=== PATIENT | female | born 1940 | race Caucasian/White ===

== ENCOUNTER 2018-11-17 02:30 | Inpatient (IN) | payer OTHER ==
[2018-11-17] MEDS ORDERED: NACL 0.9% 3 ML SYG IV (04:30)
[2018-11-17] MEDS ORDERED: BISACODYL (EC) 5 MG TAB PO (04:30)
[2018-11-17] MEDS: NITROGLYCERIN (SL) 0.4 MG TAB SL (07:03)
[2018-11-17 07:04] LABS: ADD MAN DIFF? NO
[2018-11-17 07:06] LABS: WHITE BLOOD COUNT 4.3 10^3/ul (4.8-10.8)
[2018-11-17 07:06] LABS: BASOPHILS % 0.5 % (0.0-2.0); EOSINOPHILS # 0.1 10^3/ul (0.0-0.5); EOSINOPHILS % 1.9 % (0.0-7.0); HEMATOCRIT 36.6 % (37.0-47.0); HEMOGLOBIN 11.9 g/dl (12.0-16.0); LYMPHOCYTES # 1.3 10^3/ul (0.8-2.9); LYMPHOCYTES % 30.7 % (15.0-51.0); MEAN CORPUSCULAR HEMOGLOBIN 28.9 pg (29.0-33.0); MEAN CORPUSCULAR HGB CONC 32.5 g/dl (32.0-37.0); MEAN CORPUSCULAR VOLUME 88.8 fl (82.0-101.0); MEAN PLATELET VOLUME 10.4 fl (7.4-10.4); MONOCYTE # 0.4 10^3/ul (0.3-0.9); MONOCYTES % 8.2 % (0.0-11.0); NEUTROPHIL # 2.5 10^3/ul (1.6-7.5); NEUTROPHILS % 58.5 % (39.0-77.0); PLATELET COUNT 154 10^3/UL (140-415); RED BLOOD COUNT 4.12 10^6/ul (4.20-5.40); RED CELL DISTRIBUTION WIDTH 13.1 % (11.5-14.5)
[2018-11-17 07:22] LABS: CREATINE KINASE 47 IU/L (23-200)
[2018-11-17 07:22] LABS: HEMOGLOBIN A1C 6.5 % (0-5.9)
[2018-11-17 07:26] LABS: ALANINE AMINOTRANSFERASE 27 IU/L (13-69); ALBUMIN 3.5 g/dl (3.3-4.9); ALKALINE PHOSPHATASE 46 IU/L (42-121); ANION GAP 8 (5-13); ASPARTATE AMINO TRANSFERASE 22 IU/L (15-46); BILIRUBIN,INDIRECT 0.4 mg/dl (0-1.1); BILIRUBIN,TOTAL 0.4 mg/dl (0.2-1.3); BLOOD UREA NITROGEN 10 mg/dl (7-20); CALCIUM 9.1 mg/dl (8.4-10.2); CARBON DIOXIDE 31 mmol/L (21-31); CHLORIDE 103 mmol/L (97-110); CHOL/HDL RATIO 13.4 RATIO; CHOLESTEROL 268 mg/dl (100-200); CREATININE 0.54 mg/dl (0.44-1.00); GLUCOSE 176 mg/dl (70-220); HDL CHOLESTEROL 20 mg/dl (33-92); LDL CHOLESTEROL,CALCULATED 194 mg/dl; MAGNESIUM 1.8 mg/dl (1.7-2.5); POTASSIUM 3.9 mmol/L (3.5-5.1); SODIUM 142 mmol/L (135-144); TOTAL PROTEIN 6.4 g/dl (6.1-8.1); TRIGLYCERIDES 272 mg/dl (0-149)
[2018-11-17 07:35] LABS: CK INDEX 1.6; CK-MB 0.75 ng/ml (0.0-2.4); TROPONIN-I < 0.012 ng/ml (0.000-0.120)
[2018-11-17] MEDS: BENAZEPRIL 20 MG TAB PO (09:10)
[2018-11-17] MEDS: AMLODIPINE 10 MG TAB PO (09:10)
[2018-11-17] MEDS: HEPARIN 5,000 UNIT/1 ML VIAL SC ×3 (09:26→22:25)
[2018-11-17 12:43] LABS: CREATINE KINASE 51 IU/L (23-200)
[2018-11-17 12:57] LABS: CK-MB 0.53 ng/ml (0.0-2.4); TROPONIN-I < 0.012 ng/ml (0.000-0.120)
[2018-11-17 13:04] LABS: D-DIMER 900.98 ng/ml (<460)
[2018-11-17] MEDS: HYDROCHLOROTHIAZIDE 12.5 MG CAP PO (14:16)
[2018-11-17] MEDS: ATORVASTATIN 10 MG TAB PO (22:00)
[2018-11-18] MEDS: HEPARIN 5,000 UNIT/1 ML VIAL SC ×3 (06:18→22:31)
[2018-11-18 08:10] LABS: ADD MAN DIFF? NO
[2018-11-18 08:23] LABS: WHITE BLOOD COUNT 4.5 10^3/ul (4.8-10.8)
[2018-11-18 08:23] LABS: BASOPHILS % 0.9 % (0.0-2.0); EOSINOPHILS # 0.1 10^3/ul (0.0-0.5); EOSINOPHILS % 1.6 % (0.0-7.0); HEMATOCRIT 40.5 % (37.0-47.0); HEMOGLOBIN 13.2 g/dl (12.0-16.0); LYMPHOCYTES % 43.7 % (15.0-51.0); MEAN CORPUSCULAR HEMOGLOBIN 28.7 pg (29.0-33.0); MEAN CORPUSCULAR HGB CONC 32.6 g/dl (32.0-37.0); MEAN PLATELET VOLUME 10.5 fl (7.4-10.4); MONOCYTE # 0.5 10^3/ul (0.3-0.9); MONOCYTES % 11.1 % (0.0-11.0); NEUTROPHIL # 1.9 10^3/ul (1.6-7.5); NEUTROPHILS % 42.5 % (39.0-77.0); PLATELET COUNT 176 10^3/UL (140-415); RED CELL DISTRIBUTION WIDTH 13.2 % (11.5-14.5)
[2018-11-18 08:34] LABS: MAGNESIUM 1.9 mg/dl (1.7-2.5)
[2018-11-18 08:36] LABS: ALANINE AMINOTRANSFERASE 25 IU/L (13-69); ALBUMIN 3.8 g/dl (3.3-4.9); ALBUMIN/GLOBULIN RATIO 1.26; ALKALINE PHOSPHATASE 46 IU/L (42-121); ANION GAP 9 (5-13); ASPARTATE AMINO TRANSFERASE 32 IU/L (15-46); BILIRUBIN,INDIRECT 0.6 mg/dl (0-1.1); BILIRUBIN,TOTAL 0.6 mg/dl (0.2-1.3); BLOOD UREA NITROGEN 10 mg/dl (7-20); CALCIUM 9.4 mg/dl (8.4-10.2); CARBON DIOXIDE 31 mmol/L (21-31); CHLORIDE 102 mmol/L (97-110); CREATININE 0.47 mg/dl (0.44-1.00); GLUCOSE 155 mg/dl (70-220); POTASSIUM 4.3 mmol/L (3.5-5.1); SODIUM 142 mmol/L (135-144); TOTAL PROTEIN 6.8 g/dl (6.1-8.1)
[2018-11-18 08:39] LABS: TROPONIN-I < 0.012 ng/ml (0.000-0.120)
[2018-11-18] MEDS: HYDROCHLOROTHIAZIDE 12.5 MG CAP PO (08:49)
[2018-11-18] MEDS: BENAZEPRIL 20 MG TAB PO (08:50)
[2018-11-18] MEDS: AMLODIPINE 10 MG TAB PO (08:50)
[2018-11-18] MEDS ORDERED: ATORVASTATIN 10 MG TAB PO (21:00)
[2018-11-18] MEDS: ATORVASTATIN 80 MG TAB PO (23:32)
[2018-11-19] MEDS: HEPARIN 5,000 UNIT/1 ML VIAL SC ×3 (06:24→21:24)
[2018-11-19] MEDS: HYDROCHLOROTHIAZIDE 12.5 MG CAP PO (09:08)
[2018-11-19] MEDS: AMLODIPINE 10 MG TAB PO (09:08)
[2018-11-19] MEDS: LINAGLIPTIN 5 MG TABLET PO (09:09)
[2018-11-19] MEDS: BENAZEPRIL 20 MG TAB PO (09:24)
[2018-11-19 09:27] LABS: ADD MAN DIFF? NO
[2018-11-19 09:32] LABS: BASOPHIL # 0.1 10^3/ul (0.0-0.1); EOSINOPHILS # 0.1 10^3/ul (0.0-0.5); EOSINOPHILS % 1.6 % (0.0-7.0); HEMATOCRIT 40.7 % (37.0-47.0); HEMOGLOBIN 13.5 g/dl (12.0-16.0); LYMPHOCYTES # 2.3 10^3/ul (0.8-2.9); LYMPHOCYTES % 45.5 % (15.0-51.0); MEAN CORPUSCULAR HEMOGLOBIN 28.8 pg (29.0-33.0); MEAN CORPUSCULAR HGB CONC 33.2 g/dl (32.0-37.0); MEAN PLATELET VOLUME 10.3 fl (7.4-10.4); MONOCYTE # 0.4 10^3/ul (0.3-0.9); MONOCYTES % 8.2 % (0.0-11.0); NEUTROPHIL # 2.2 10^3/ul (1.6-7.5); NEUTROPHILS % 43.7 % (39.0-77.0); PLATELET COUNT 191 10^3/UL (140-415); RED BLOOD COUNT 4.68 10^6/ul (4.20-5.40); RED CELL DISTRIBUTION WIDTH 13.2 % (11.5-14.5)
[2018-11-19 09:49] LABS: PHOSPHORUS 4.4 mg/dl (2.5-4.9)
[2018-11-19 09:49] LABS: MAGNESIUM 1.9 mg/dl (1.7-2.5)
[2018-11-19 09:50] LABS: ALANINE AMINOTRANSFERASE 23 IU/L (13-69); ALBUMIN 4.1 g/dl (3.3-4.9); ALBUMIN/GLOBULIN RATIO 1.24; ALKALINE PHOSPHATASE 49 IU/L (42-121); ANION GAP 9 (5-13); ASPARTATE AMINO TRANSFERASE 34 IU/L (15-46); BILIRUBIN,INDIRECT 0.6 mg/dl (0-1.1); BILIRUBIN,TOTAL 0.6 mg/dl (0.2-1.3); BLOOD UREA NITROGEN 15 mg/dl (7-20); CALCIUM 9.8 mg/dl (8.4-10.2); CARBON DIOXIDE 32 mmol/L (21-31); CHLORIDE 102 mmol/L (97-110); CREATININE 0.47 mg/dl (0.44-1.00); GLUCOSE 162 mg/dl (70-220); SODIUM 143 mmol/L (135-144); TOTAL PROTEIN 7.4 g/dl (6.1-8.1)
[2018-11-19] MEDS ORDERED: SOD CHLORIDE 0.9% 1,000 ML IV (11:43)
[2018-11-19] MEDS: DIPHENHYDRAMINE 50 MG CAP PO (12:00)
[2018-11-19] MEDS: DIAZEPAM 5 MG TAB PO (12:00)
[2018-11-19] MEDS ORDERED: MIDAZOLAM 1 MG/ML 2 ML INJ (16:53)
[2018-11-19] MEDS ORDERED: LIDOCAINE 1% (MDV) 20 ML INJ (16:53)
[2018-11-19] MEDS ORDERED: FENTAnyl 50 MCG/ML VIAL (16:53)
[2018-11-19] MEDS ORDERED: IODIXANOL LOCM 100 ML BTL ×2 (16:53→17:34)
[2018-11-19] MEDS ORDERED: HEPARIN 1000 UNITS/ML 10 ML INJ (16:53)
[2018-11-19] MEDS ORDERED: VERAPAMIL 5 MG INJ (16:54)
[2018-11-19] MEDS ORDERED: NITROGLYCERIN (IC) 100 MCG/ML INJ (16:54)
[2018-11-19] MEDS: SOD CHLORIDE 0.9% 1,000 ML IV (21:00)
[2018-11-19] MEDS ORDERED: ATORVASTATIN 80 MG TAB PO (21:00)
[2018-11-19] MEDS: ATORVASTATIN 80 MG TAB PO (21:04)
[2018-11-20 05:12] LABS: ADD MAN DIFF? NO
[2018-11-20 05:23] LABS: BASOPHILS % 0.3 % (0.0-2.0); EOSINOPHILS # 0.1 10^3/ul (0.0-0.5); HEMATOCRIT 34.9 % (37.0-47.0); HEMOGLOBIN 11.5 g/dl (12.0-16.0); LYMPHOCYTES # 1.8 10^3/ul (0.8-2.9); LYMPHOCYTES % 30.9 % (15.0-51.0); MEAN CORPUSCULAR HEMOGLOBIN 28.8 pg (29.0-33.0); MEAN CORPUSCULAR VOLUME 87.5 fl (82.0-101.0); MEAN PLATELET VOLUME 10.2 fl (7.4-10.4); MONOCYTE # 0.5 10^3/ul (0.3-0.9); MONOCYTES % 7.9 % (0.0-11.0); NEUTROPHIL # 3.5 10^3/ul (1.6-7.5); NEUTROPHILS % 59.7 % (39.0-77.0); PLATELET COUNT 160 10^3/UL (140-415); RED BLOOD COUNT 3.99 10^6/ul (4.20-5.40); RED CELL DISTRIBUTION WIDTH 13.1 % (11.5-14.5)
[2018-11-20 05:23] LABS: WHITE BLOOD COUNT 5.8 10^3/ul (4.8-10.8)
[2018-11-20 05:55] LABS: ALANINE AMINOTRANSFERASE 39 IU/L (13-69); ALBUMIN 3.5 g/dl (3.3-4.9); ALBUMIN/GLOBULIN RATIO 1.16; ALKALINE PHOSPHATASE 50 IU/L (42-121); ANION GAP 12 (5-13); ASPARTATE AMINO TRANSFERASE 33 IU/L (15-46); BILIRUBIN,INDIRECT 0.6 mg/dl (0-1.1); BILIRUBIN,TOTAL 0.6 mg/dl (0.2-1.3); BLOOD UREA NITROGEN 18 mg/dl (7-20); CARBON DIOXIDE 27 mmol/L (21-31); CHLORIDE 103 mmol/L (97-110); CREATININE 0.57 mg/dl (0.44-1.00); GLUCOSE 141 mg/dl (70-220); POTASSIUM 3.5 mmol/L (3.5-5.1); SODIUM 142 mmol/L (135-144); TOTAL PROTEIN 6.5 g/dl (6.1-8.1)
[2018-11-20] MEDS: HEPARIN 5,000 UNIT/1 ML VIAL SC ×3 (05:58→22:08)
[2018-11-20] MEDS: SOD CHLORIDE 0.9% 1,000 ML IV (07:25)
[2018-11-20] MEDS: LINAGLIPTIN 5 MG TABLET PO (08:48)
[2018-11-20] MEDS: AMLODIPINE 10 MG TAB PO ×2 (08:53→09:00)
[2018-11-20] MEDS: HYDROCHLOROTHIAZIDE 12.5 MG CAP PO (09:00)
[2018-11-20] MEDS: BENAZEPRIL 20 MG TAB PO (09:00)
[2018-11-20] MEDS: SOD CHLORIDE 0.9% 250 ML IV* (10:30)
[2018-11-20 16:16] LABS: ADD UMIC YES; UR ASCORBIC ACID NEGATIVE (NEGATIVE); UR BILIRUBIN (Dip) NEGATIVE (NEGATIVE); UR BLOOD (Dip) NEGATIVE (NEGATIVE); UR CLARITY SLIGHTLY CLOUDY (CLEAR); UR COLOR YELLOW (YELLOW); UR GLUCOSE (Dip) NEGATIVE (NEGATIVE); UR HYALINE CAST FEW /HPF (NONE SEEN); UR KETONES (Dip) NEGATIVE (NEGATIVE); UR LEUKOCYTE ESTERASE (Dip) 3+ Leu/ul (NEGATIVE); UR MUCUS FEW /HPF (NONE SEEN); UR NITRITE (Dip) NEGATIVE (NEGATIVE); UR NONSQUAMOUS EPITHELIAL CELL 3 /HPF (NONE SEEN); UR RBC 3 /HPF (0-5); UR SPECIFIC GRAVITY (Dip) 1.027 (1.003-1.030); UR SQUAMOUS EPITHELIAL CELL FEW /HPF (FEW); UR TOTAL PROTEIN (Dip) NEGATIVE (NEGATIVE); UR UROBILINOGEN (Dip) 2+ mg/dL (NEGATIVE); UR WBC 106 /HPF (0-5)
[2018-11-20] MEDS: ATORVASTATIN 80 MG TAB PO (20:53)
[2018-11-21] MEDS: CEFAZOLIN 2 GM/50 ML (PMX) 50 ML IVPB (05:52)
[2018-11-21] MEDS ORDERED: ALBUMIN HUMAN 25% 100 ML INJ (07:00)
[2018-11-21] MEDS ORDERED: ALBUMIN HUMAN 5% 250 ML INJ (07:00)
[2018-11-21] MEDS: BENAZEPRIL 20 MG TAB PO (08:53)
[2018-11-21] MEDS: LINAGLIPTIN 5 MG TABLET PO (08:56)
[2018-11-21] MEDS: ASPIRIN 600 MG SUPP PR ×2 (10:24→19:00)
[2018-11-21] MEDS ORDERED: ETOMIDATE 20 MG INJ (11:07)
[2018-11-21] MEDS ORDERED: LIDOCAINE 2% (SDV) 5 ML INJ (11:07)
[2018-11-21] MEDS ORDERED: MIDAZOLAM 5 ML ×2 (11:07)
[2018-11-21] MEDS ORDERED: SUCCINYLCHOLINE CHLORIDE 100 MG/5 ML SYG IV (11:08)
[2018-11-21] MEDS ORDERED: ROCURONIUM 50 MG INJ (11:08)
[2018-11-21] MEDS ORDERED: HEPARIN 1000 UNITS/ML 10 ML INJ ×3 (11:23→13:42)
[2018-11-21] MEDS ORDERED: PROTAMINE 250 MG INJ ×2 (11:23→17:49)
[2018-11-21] MEDS ORDERED: LORAZEPAM 2 MG INJ IV (12:00)
[2018-11-21] MEDS ORDERED: IPRATROPIUM (NEB) 0.5 MG/2.5 ML AMP HHN (12:00)
[2018-11-21] MEDS ORDERED: ONDANSETRON 4 MG INJ IV ×2 (12:00→19:30)
[2018-11-21] MEDS ORDERED: LEVALBUTEROL (NEB) 1.25 MG/0.5 ML AMP HHN (12:00)
[2018-11-21] MEDS ORDERED: DIPHENHYDRAMINE 50 MG INJ IV (12:00)
[2018-11-21] MEDS ORDERED: MIDAZOLAM 1 MG/ML 2 ML INJ IV (12:00)
[2018-11-21] MEDS ORDERED: FENTAnyl 50 MCG/ML VIAL IV ×2 (12:00)
[2018-11-21] MEDS ORDERED: TRANEXAMIC ACID 1,000 MG/10 ML VIAL (12:00)
[2018-11-21] MEDS ORDERED: LABETALOL HCL 20MG INJ IV (12:00)
[2018-11-21] MEDS ORDERED: HYDROmorphONE 0.5 MG/0.5 ML SYG IV ×3 (12:00)
[2018-11-21] MEDS ORDERED: hydrALAzine 20 MG INJ IV (12:00)
[2018-11-21] MEDS ORDERED: NA BICARBONATE 8.4% 50 ML SYG ×2 (13:42→15:55)
[2018-11-21] MEDS ORDERED: LIDOCAINE 100 MG SYRINGE ×2 (13:42→15:55)
[2018-11-21] MEDS: PAPAVERINE 60 MG INJ (13:43)
[2018-11-21] MEDS: HEPARIN 1000 UNITS/ML 10 ML INJ (13:44)
[2018-11-21] MEDS: VANCOMYCIN 1 GM INJ (13:45)
[2018-11-21] MEDS ORDERED: ALBUMIN HUMAN 5% 250 ML (14:07)
[2018-11-21] MEDS ORDERED: POTASSIUM CHLORIDE 100 ML IVPB (14:07)
[2018-11-21 15:24] LABS: IMMEDIATE SPIN CROSSMATCH 1
[2018-11-21] MEDS ORDERED: CA CHLORIDE 10% 10 ML SYRINGE (16:26)
[2018-11-21] MEDS: INSULIN HUMAN REGULAR 100 UNIT in SOD CHLORIDE 0.9% 99 ML IVPB ×2 (17:00→20:36)
[2018-11-21 17:25] LABS: TYPE AND SCREEN 1
[2018-11-21 18:02] LABS: IMMEDIATE SPIN CROSSMATCH 1 8
[2018-11-21] MEDS ORDERED: DEXTROSE 50% 50 ML SYRINGE IV ×4 (19:00→20:00)
[2018-11-21] MEDS ORDERED: ACCU-CHEK XX (19:00)
[2018-11-21] MEDS: morphine 2 MG INJ IV ×2 (19:18→23:31)
[2018-11-21] MEDS ORDERED: FUROSEMIDE 40 MG INJ (19:21)
[2018-11-21] MEDS ORDERED: ACETAMINOPHEN 650 MG SUPP PR (19:30)
[2018-11-21] MEDS: FUROSEMIDE 40 MG INJ IV (19:30)
[2018-11-21] MEDS ORDERED: METOCLOPRAMIDE 10 MG INJ IV (19:30)
[2018-11-21 19:35] LABS: ADD MAN DIFF? NO
[2018-11-21 19:37] LABS: ABNORMAL IP MESSAGE 1; EOSINOPHILS % 0.3 % (0.0-7.0); HEMATOCRIT 28.5 % (37.0-47.0); HEMOGLOBIN 9.6 g/dl (12.0-16.0); LYMPHOCYTES # 0.8 10^3/ul (0.8-2.9); LYMPHOCYTES % 22.4 % (15.0-51.0); MEAN CORPUSCULAR HEMOGLOBIN 29.1 pg (29.0-33.0); MEAN CORPUSCULAR HGB CONC 33.7 g/dl (32.0-37.0); MEAN CORPUSCULAR VOLUME 86.4 fl (82.0-101.0); MEAN PLATELET VOLUME 10.1 fl (7.4-10.4); MONOCYTES % 1.1 % (0.0-11.0); NEUTROPHIL # 2.7 10^3/ul (1.6-7.5); NEUTROPHILS % 75.9 % (39.0-77.0); PLATELET COUNT 75 10^3/UL (140-415); RED CELL DISTRIBUTION WIDTH 13.3 % (11.5-14.5)
[2018-11-21 19:37] LABS: WHITE BLOOD COUNT 3.6 10^3/ul (4.8-10.8)
[2018-11-21 19:38] LABS: POSITIVE DIFF @See below
[2018-11-21 19:39] LABS: AADO2 Arterial 380.6 mmHg (7.0-24.0); Arterial Base Excess -1.4 mmol/L (-3.0-3); Arterial Blood Gas Oxygen Sat 93.1 mmHG (95.0-100.0); Arterial COHb 0.3 % (0.0-3.0); Arterial Fraction of Oxyhgb 92.5 % (93.0-99.0); Arterial HCO3 24.2 mmol/L (22.0-26.0); Arterial MetHb 0.3 % (0.0-1.5); Arterial pCO2 44.4 mmhg (35-45); MODE VENT - AC; Site A-Line
[2018-11-21 19:53] LABS: ANION GAP 11 (5-13); BLOOD UREA NITROGEN 11 mg/dl (7-20); CALCIUM 10.2 mg/dl (8.4-10.2); CARBON DIOXIDE 26 mmol/L (21-31); CHLORIDE 109 mmol/L (97-110); CREATININE 0.64 mg/dl (0.44-1.00); GLUCOSE 167 mg/dl (70-220); MAGNESIUM 2.6 mg/dl (1.7-2.5); POTASSIUM 3.8 mmol/L (3.5-5.1); SODIUM 146 mmol/L (135-144)
[2018-11-21 19:58] LABS: INR 1.31; PROTIME 16.4 Sec (11.9-14.9); PT RATIO 1.3
[2018-11-21 19:59] LABS: PARTIAL THROMBOPLASTIN TIME 33.5 Sec (23.0-35.0)
[2018-11-21 20:00] LABS: MODE VENT - AC; MetHgb Venous 0.3 %; Sample Type BLMV; Site VENOUS LINE; Venous COHb 0.3 %; Venous Fraction OxyHgb 66.9 %; Venous Oxygen Sat 67.3 mmHG (55.0-75.0); Venous Total Hemglobin 10.8 g/dl
[2018-11-21] MEDS ORDERED: MAGNESIUM SULFATE 2 GM/50 ML 50 ML IVPB (20:00)
[2018-11-21] MEDS ORDERED: MAGNESIUM SULFATE 1 GM/D5W 100 ML IVPB (20:00)
[2018-11-21 20:16] LABS: HEMOGLOBIN A1C 6.1 % (0-5.9)
[2018-11-21] MEDS ORDERED: POTASSIUM CHLORIDE 50 ML (20:22)
[2018-11-21] MEDS: PROPOFOL 100 ML IV ×2 (20:37→23:58)
[2018-11-21] MEDS: DOPamine-D5W 1.6 MG/ML 250 ML IV (20:45)
[2018-11-21] MEDS: POTASSIUM CHLORIDE 50 ML IVPB ×2 (20:49→23:18)
[2018-11-21 20:57] LABS: ANISOCYTOSIS 1+ (0-0); BAND NEUTROPHILS #M 0.3 10^3/ul (0.0-0.6); BAND NEUTROPHILS % (M) 9 % (0-4); GIANT THROMBO% (M) 2 % (0-0); LYMPHOCYTES % (M) 30 % (15-51); MICROCYTOSIS 1+ (0-0); MONOCYTES % (M) 2 % (0-11); PLATELET MORPHOLOGY COMMENT @See below; REACTIVE LYMPHOCYTES #M 0.1 10^3/ul (0.0-0.0); REACTIVE LYMPHOCYTES% (M) 4 % (0-0); SEGMENTED NEUTROPHILS (M) % 55 % (39-77); SMUDGE%M 69 % (0-0)
[2018-11-21] MEDS: ALBUMIN HUMAN 5% 250 ML IV ×3 (21:00→22:46)
[2018-11-21] MEDS: ACCU-CHEK XX ×3 (21:00→23:42)
[2018-11-21] MEDS ORDERED: NS + KCL 20 MEQ 1,000 ML IV (21:30)
[2018-11-21] MEDS ORDERED: niCARdipine 25 MG in SOD CHLORIDE 0.9% 240 ML IV (21:30)
[2018-11-21] MEDS: INSULIN HUMAN REGULAR 100 UNIT in SOD CHLORIDE 0.9% 99 ML IV (21:59)
[2018-11-21] MEDS: POTASSIUM CHLORIDE 40 MEQ, CALCIUM CHLORIDE 10% 1 GM in DEXTROSE 5%-0.225% NACL 1,000 ML IV (22:12)
[2018-11-21 22:31] LABS: POTASSIUM 3.5 mmol/L (3.5-5.1)
[2018-11-21 23:13] LABS: AADO2 Arterial 567.2 mmHg (7.0-24.0); Arterial Base Excess -5.1 mmol/L (-3.0-3); Arterial Blood Gas Oxygen Sat 97.3 mmHG (95.0-100.0); Arterial COHb 0.3 % (0.0-3.0); Arterial Fraction of Oxyhgb 96.6 % (93.0-99.0); Arterial HCO3 19.2 mmol/L (22.0-26.0); Arterial MetHb 0.4 % (0.0-1.5); Arterial pCO2 32.5 mmhg (35-45); MODE VENT - AC; Site A-Line
[2018-11-21] MEDS: MILRINONE LACTATE 100 ML IV (23:55)
[2018-11-22] MEDS: POTASSIUM CHLORIDE 50 ML IVPB ×2 (00:26→03:16)
[2018-11-22] MEDS: ACCU-CHEK XX ×24 (00:58→23:00)
[2018-11-22 02:25] LABS: ADD MAN DIFF? NO
[2018-11-22 02:27] LABS: WHITE BLOOD COUNT 6.7 10^3/ul (4.8-10.8)
[2018-11-22 02:27] LABS: ABNORMAL IP MESSAGE 1; BASOPHILS % 0.3 % (0.0-2.0); EOSINOPHILS % 0.1 % (0.0-7.0); HEMATOCRIT 27.2 % (37.0-47.0); HEMOGLOBIN 9.1 g/dl (12.0-16.0); LYMPHOCYTES # 0.3 10^3/ul (0.8-2.9); LYMPHOCYTES % 3.9 % (15.0-51.0); MEAN CORPUSCULAR HGB CONC 33.5 g/dl (32.0-37.0); MEAN CORPUSCULAR VOLUME 86.6 fl (82.0-101.0); MEAN PLATELET VOLUME 10.5 fl (7.4-10.4); MONOCYTE # 0.4 10^3/ul (0.3-0.9); MONOCYTES % 5.7 % (0.0-11.0); NEUTROPHILS % 89.4 % (39.0-77.0); PLATELET COUNT 84 10^3/UL (140-415); RED BLOOD COUNT 3.14 10^6/ul (4.20-5.40); RED CELL DISTRIBUTION WIDTH 14.2 % (11.5-14.5)
[2018-11-22 02:30] LABS: POSITIVE DIFF @See below
[2018-11-22 02:47] LABS: PROTIME 15.3 Sec (11.9-14.9); PT RATIO 1.2
[2018-11-22 02:55] LABS: ANION GAP 7 (5-13); BLOOD UREA NITROGEN 14 mg/dl (7-20); CALCIUM 9.5 mg/dl (8.4-10.2); CARBON DIOXIDE 26 mmol/L (21-31); CHLORIDE 116 mmol/L (97-110); CREATININE 0.62 mg/dl (0.44-1.00); GLUCOSE 146 mg/dl (70-220); MAGNESIUM 2.4 mg/dl (1.7-2.5); POTASSIUM 3.8 mmol/L (3.5-5.1); SODIUM 149 mmol/L (135-144)
[2018-11-22 03:28] LABS: POTASSIUM 3.8 mmol/L (3.5-5.1)
[2018-11-22 03:51] LABS: ANISOCYTOSIS 2+ (0-0); BAND NEUTROPHILS #M 1.4 10^3/ul (0.0-0.6); BAND NEUTROPHILS % (M) 22 % (0-4); BASOPHILS % (M) 1 % (0-2); EOSINOPHILS % (M) 1 % (0-7); GIANT THROMBO% (M) 3 % (0-0); LYMPHOCYTES #M 0.3 10^3/ul (0.8-2.9); LYMPHOCYTES % (M) 5 % (15-51); MICROCYTOSIS 2+ (0-0); MONOCYTE #M 0.4 10^3/ul (0.3-0.9); MONOCYTES % (M) 6 % (0-11); PLATELET ESTIMATE DECREASED; POLYCHROMASIA 2+ (0-0); SEG NEUT #M 4.4 10^3/ul (1.6-7.5); SEGMENTED NEUTROPHILS (M) % 65 % (39-77); SMUDGE%M 5 % (0-0)
[2018-11-22 04:58] LABS: AADO2 Mixed Venous 345.7 mmHg; Blood Gas PS 14; MODE VENT - SIMV; MetHgb Mixed Venous 0.5 %; Mixed Venous Base Excess -2.3 mmol/L; Mixed Venous COHb 0.3 %; Mixed Venous Fraction OxyHgb 65.3 %; Mixed Venous Oxygen Sat 65.8 mmHG (65.0-75.0); Mixed Venous Total Hemglobin 9.9 g/dl; Site VENOUS LINE
[2018-11-22 05:05] LABS: AADO2 Arterial 279.7 mmHg (7.0-24.0); Arterial Base Excess -0.8 mmol/L (-3.0-3); Arterial Blood Gas Oxygen Sat 96.8 mmHG (95.0-100.0); Arterial COHb 0.2 % (0.0-3.0); Arterial Fraction of Oxyhgb 96.3 % (93.0-99.0); Arterial HCO3 24.5 mmol/L (22.0-26.0); Arterial MetHb 0.3 % (0.0-1.5); Arterial pCO2 43.1 mmhg (35-45); Blood Gas PS 14; MODE VENT - SIMV; Site A-Line
[2018-11-22] MEDS ORDERED: ALBUMIN HUMAN 5% 250 ML (05:22)
[2018-11-22] MEDS: ALBUMIN HUMAN 5% 250 ML IV ×3 (05:24→17:42)
[2018-11-22] MEDS: CEFAZOLIN 1 GM/50 ML (PMX) 50 ML IVPB ×3 (06:42→21:26)
[2018-11-22 06:50] LABS: PARTIAL THROMBOPLASTIN TIME 72.2 Sec (23.0-35.0)
[2018-11-22 06:50] LABS: POTASSIUM 4.6 mmol/L (3.5-5.1)
[2018-11-22] MEDS: EPINEPHrine 4 MG in DEXTROSE 5% 246 ML IV (07:19)
[2018-11-22] MEDS: NORepinephrine 8MG/250 ML (PMX 250 ML IV (07:20)
[2018-11-22] MEDS: PHENYLephrine 20MG IN 250 ML 250 ML IV (07:20)
[2018-11-22] MEDS: ATORVASTATIN 80 MG TAB PO ×2 (07:20→21:26)
[2018-11-22] MEDS: MILRINONE LACTATE 2 MG in SOD CHLORIDE 0.9% 50 ML IV (07:20)
[2018-11-22] MEDS: HEPARIN (10000 UNITS/ML) 10,000 UNIT, MILRINONE LACTATE 10 MG in SOD CHLORIDE 0.9% 1,00... SC (07:20)
[2018-11-22] MEDS: ONDANSETRON 4 MG INJ IV ×2 (07:31→21:44)
[2018-11-22 08:15] LABS: AADO2 Arterial 206.5 mmHg (7.0-24.0); Arterial Base Excess -0.7 mmol/L (-3.0-3); Arterial Blood Gas Oxygen Sat 96.9 mmHG (95.0-100.0); Arterial COHb 0.3 % (0.0-3.0); Arterial Fraction of Oxyhgb 96.4 % (93.0-99.0); Arterial HCO3 24.3 mmol/L (22.0-26.0); Arterial MetHb 0.2 % (0.0-1.5); Arterial pCO2 41.6 mmhg (35-45); Blood Gas PS 12; MODE VENT - CPAP; Site A-Line
[2018-11-22] MEDS: BENAZEPRIL 20 MG TAB PO (08:20)
[2018-11-22 08:24] LABS: HEMATOCRIT 26.2 % (37.0-47.0); HEMOGLOBIN 8.8 g/dl (12.0-16.0)
[2018-11-22] MEDS: LINAGLIPTIN 5 MG TABLET PO (08:24)
[2018-11-22] MEDS: FAMOTIDINE 20 MG INJ IV (08:24)
[2018-11-22] MEDS: ASPIRIN 81 MG TAB NGT (08:24)
[2018-11-22] MEDS: morphine 2 MG INJ IV ×3 (09:42→22:18)
[2018-11-22] MEDS: POTASSIUM CHLORIDE 40 MEQ, CALCIUM CHLORIDE 10% 1 GM in DEXTROSE 5%-0.225% NACL 1,000 ML IV (11:36)
[2018-11-22] MEDS: INSULIN HUMAN REGULAR 100 UNIT in SOD CHLORIDE 0.9% 99 ML IV (11:37)
[2018-11-22] MEDS: SOD CHLORIDE 0.9% 250 ML IV (12:51)
[2018-11-22] MEDS: HYDROmorphONE 0.5 MG/0.5 ML SYG IV ×2 (12:58→16:42)
[2018-11-22] MEDS: FUROSEMIDE 20 MG INJ IV (17:38)
[2018-11-22 19:12] LABS: ADD MAN DIFF? NO
[2018-11-22 19:15] LABS: WHITE BLOOD COUNT 8.2 10^3/ul (4.8-10.8)
[2018-11-22 19:15] LABS: ABNORMAL IP MESSAGE 1; BASOPHILS % 0.2 % (0.0-2.0); EOSINOPHILS % 0.4 % (0.0-7.0); HEMATOCRIT 25.2 % (37.0-47.0); HEMOGLOBIN 8.1 g/dl (12.0-16.0); LYMPHOCYTES # 0.7 10^3/ul (0.8-2.9); LYMPHOCYTES % 8.2 % (15.0-51.0); MEAN CORPUSCULAR HEMOGLOBIN 29.2 pg (29.0-33.0); MEAN CORPUSCULAR HGB CONC 32.1 g/dl (32.0-37.0); MEAN PLATELET VOLUME 11.1 fl (7.4-10.4); MONOCYTE # 0.7 10^3/ul (0.3-0.9); MONOCYTES % 8.5 % (0.0-11.0); NEUTROPHIL # 6.7 10^3/ul (1.6-7.5); PLATELET COUNT 74 10^3/UL (140-415); RED BLOOD COUNT 2.77 10^6/ul (4.20-5.40)
[2018-11-22 19:21] LABS: POSITIVE DIFF @See below
[2018-11-22 19:35] LABS: INR 1.36; PROTIME 16.9 Sec (11.9-14.9); PT RATIO 1.3
[2018-11-22 19:36] LABS: PARTIAL THROMBOPLASTIN TIME 38.8 Sec (23.0-35.0)
[2018-11-22 19:37] LABS: ANION GAP 5 (5-13); BLOOD UREA NITROGEN 18 mg/dl (7-20); CALCIUM 9.1 mg/dl (8.4-10.2); CARBON DIOXIDE 28 mmol/L (21-31); CHLORIDE 112 mmol/L (97-110); GLUCOSE 151 mg/dl (70-220); MAGNESIUM 2.2 mg/dl (1.7-2.5); POTASSIUM 4.9 mmol/L (3.5-5.1); SODIUM 145 mmol/L (135-144)
[2018-11-22] MEDS: PROPOFOL 100 ML IV (20:00)
[2018-11-22 21:01] LABS: COLLAGEN/ADP 213 Secs. (40-147); COLLAGEN/EPI > 231 Secs. (51-198)
[2018-11-23] MEDS: ACCU-CHEK XX ×24 (00:41→23:00)
[2018-11-23] MEDS: HYDROmorphONE 0.5 MG/0.5 ML SYG IV ×2 (00:50→06:22)
[2018-11-23] MEDS: morphine 2 MG INJ IV ×5 (04:12→17:24)
[2018-11-23] MEDS: POTASSIUM CHLORIDE 40 MEQ, CALCIUM CHLORIDE 10% 1 GM in DEXTROSE 5%-0.225% NACL 1,000 ML IV (04:54)
[2018-11-23] MEDS: ACETAMINOPHEN 325 MG TAB PO (05:34)
[2018-11-23] MEDS: CEFAZOLIN 1 GM/50 ML (PMX) 50 ML IVPB (05:37)
[2018-11-23 05:55] LABS: ABNORMAL IP MESSAGE 1; HEMATOCRIT 25.3 % (37.0-47.0); HEMOGLOBIN 8.1 g/dl (12.0-16.0); MEAN CORPUSCULAR HEMOGLOBIN 29.2 pg (29.0-33.0); MEAN CORPUSCULAR VOLUME 91.3 fl (82.0-101.0); MEAN PLATELET VOLUME 11.5 fl (7.4-10.4); PLATELET COUNT 76 10^3/UL (140-415); RED BLOOD COUNT 2.77 10^6/ul (4.20-5.40); RED CELL DISTRIBUTION WIDTH 15.2 % (11.5-14.5)
[2018-11-23 05:55] LABS: WHITE BLOOD COUNT 9.7 10^3/ul (4.8-10.8)
[2018-11-23 05:58] LABS: ADD MAN DIFF? YES; POSITIVE DIFF @See below
[2018-11-23 06:22] LABS: MAGNESIUM 2.2 mg/dl (1.7-2.5)
[2018-11-23 06:22] LABS: PHOSPHORUS 3.8 mg/dl (2.5-4.9)
[2018-11-23 06:35] LABS: AADO2 Arterial 593.2 mmHg (7.0-24.0); Arterial Base Excess -5.2 mmol/L (-3.0-3); Arterial Blood Gas Oxygen Sat 93.1 mmHG (95.0-100.0); Arterial COHb 0.3 % (0.0-3.0); Arterial Fraction of Oxyhgb 92.6 % (93.0-99.0); Arterial HCO3 21.2 mmol/L (22.0-26.0); Arterial MetHb 0.2 % (0.0-1.5); Arterial pCO2 45.9 mmhg (35-45); MODE MASK - NRB; Site A-Line
[2018-11-23 06:37] LABS: ALANINE AMINOTRANSFERASE 78 IU/L (13-69); ALBUMIN 3.9 g/dl (3.3-4.9); ALBUMIN/GLOBULIN RATIO 1.62; ALKALINE PHOSPHATASE 48 IU/L (42-121); ANION GAP 5 (5-13); ASPARTATE AMINO TRANSFERASE 127 IU/L (15-46); BILIRUBIN,INDIRECT 0.6 mg/dl (0-1.1); BILIRUBIN,TOTAL 0.6 mg/dl (0.2-1.3); BLOOD UREA NITROGEN 22 mg/dl (7-20); CALCIUM 9.4 mg/dl (8.4-10.2); CARBON DIOXIDE 26 mmol/L (21-31); CHLORIDE 111 mmol/L (97-110); CREATININE 0.72 mg/dl (0.44-1.00); GLUCOSE 138 mg/dl (70-220); SODIUM 142 mmol/L (135-144); TOTAL PROTEIN 6.3 g/dl (6.1-8.1)
[2018-11-23] MEDS: NITROGLYCERIN 50 MG/D5W (PMX) 250 ML IV ×2 (07:00→15:04)
[2018-11-23 07:22] LABS: ANISOCYTOSIS 2+ (0-0); BASOPHIL #M 0.3 10^3/ul (0.0-0.0); BASOPHILS % (M) 4 % (0-2); EOSINOPHILS % (M) 2 % (0-7); LYMPHOCYTES #M 1.4 10^3/ul (0.8-2.9); LYMPHOCYTES % (M) 15 % (15-51); MICROCYTOSIS 2+ (0-0); MONOCYTE #M 0.2 10^3/ul (0.3-0.9); MONOCYTES % (M) 3 % (0-11); MYELOCYTES % (M) 1 % (0-0); PLATELET ESTIMATE DECREASED; SEGMENTED NEUTROPHILS (M) % 75 % (39-77); SMUDGE%M 8 % (0-0)
[2018-11-23] MEDS: PROPOFOL 100 ML IV ×2 (08:00→20:00)
[2018-11-23] MEDS: BENAZEPRIL 20 MG TAB PO (08:53)
[2018-11-23] MEDS: FAMOTIDINE 20 MG INJ IV (08:53)
[2018-11-23] MEDS: ASPIRIN 81 MG TAB NGT (08:53)
[2018-11-23] MEDS: ONDANSETRON 4 MG INJ IV ×3 (09:00→18:55)
[2018-11-23] MEDS: FUROSEMIDE 40 MG INJ IV ×2 (10:42→19:57)
[2018-11-23 12:21] LABS: AADO2 Arterial 252.3 mmHg (7.0-24.0); Arterial Base Excess -3.3 mmol/L (-3.0-3); Arterial Blood Gas Oxygen Sat 95.9 mmHG (95.0-100.0); Arterial COHb 0.3 % (0.0-3.0); Arterial Fraction of Oxyhgb 95.5 % (93.0-99.0); Arterial HCO3 22.9 mmol/L (22.0-26.0); Arterial MetHb 0.1 % (0.0-1.5); Arterial pCO2 46.6 mmhg (35-45); Blood Gas PS 10; MODE MASK - BIPAP; Site A-Line
[2018-11-23] MEDS: INSULIN HUMAN REGULAR 100 UNIT in SOD CHLORIDE 0.9% 99 ML IV (12:24)
[2018-11-23] MEDS: CALCIUM CHLORIDE 10% 1 GM in DEXTROSE 5%-0.225% NACL 1,000 ML IV (14:12)
[2018-11-23] MEDS: DOCUSATE SODIUM 100 MG CAP PO (15:42)
[2018-11-23 15:53] LABS: ALANINE AMINOTRANSFERASE 64 IU/L (13-69); ALBUMIN 3.9 g/dl (3.3-4.9); ALBUMIN/GLOBULIN RATIO 1.44; ALKALINE PHOSPHATASE 52 IU/L (42-121); ANION GAP 8 (5-13); ASPARTATE AMINO TRANSFERASE 95 IU/L (15-46); BILIRUBIN,INDIRECT 0.6 mg/dl (0-1.1); BILIRUBIN,TOTAL 0.6 mg/dl (0.2-1.3); BLOOD UREA NITROGEN 23 mg/dl (7-20); CALCIUM 9.7 mg/dl (8.4-10.2); CARBON DIOXIDE 24 mmol/L (21-31); CHLORIDE 112 mmol/L (97-110); CREATININE 0.75 mg/dl (0.44-1.00); GLUCOSE 151 mg/dl (70-220); MAGNESIUM 2.2 mg/dl (1.7-2.5); POTASSIUM 4.9 mmol/L (3.5-5.1); SODIUM 144 mmol/L (135-144); TOTAL PROTEIN 6.6 g/dl (6.1-8.1)
[2018-11-23] MEDS: AMIODARONE 150MG/D5W BOLUS 100 ML IV (16:16)
[2018-11-23] MEDS: AMIODARONE 900 MG in DEXTROSE 5% 482 ML IV (16:41)
[2018-11-23 17:29] LABS: AADO2 Arterial 503.8 mmHg (7.0-24.0); Arterial Base Excess -5.7 mmol/L (-3.0-3); Arterial Blood Gas Oxygen Sat 88.2 mmHG (95.0-100.0); Arterial COHb 0.3 % (0.0-3.0); Arterial Fraction of Oxyhgb 87.8 % (93.0-99.0); Arterial HCO3 20.5 mmol/L (22.0-26.0); Arterial MetHb 0.1 % (0.0-1.5); Arterial pCO2 43.5 mmhg (35-45); MODE HFNC; Site A-Line
[2018-11-23] MEDS: ACETAMINOPHEN 1000MG/100ML IV 100 ML IVPB (20:05)
[2018-11-23] MEDS ORDERED: BUMETANIDE 6 MG in DEXTROSE 5% 36 ML IV (20:30)
[2018-11-23] MEDS ORDERED: BUMETANIDE 3 MG in DEXTROSE 5% 30 ML IVPB (21:00)
[2018-11-23] MEDS: ATORVASTATIN 80 MG TAB PO (21:00)
[2018-11-23 21:19] LABS: AADO2 Arterial 541.3 mmHg (7.0-24.0); Arterial Base Excess -8.7 mmol/L (-3.0-3); Arterial Blood Gas Oxygen Sat 81.2 mmHG (95.0-100.0); Arterial COHb 0.3 % (0.0-3.0); Arterial Fraction of Oxyhgb 80.9 % (93.0-99.0); Arterial HCO3 18.8 mmol/L (22.0-26.0); Arterial MetHb 0.1 % (0.0-1.5); Arterial pCO2 47.6 mmhg (35-45); MODE HFNC; Site A-Line
[2018-11-23] MEDS ORDERED: NA BICARBONATE 8.4% 50 ML SYG (21:35)
[2018-11-23] MEDS: NA BICARBONATE 8.4% 50 ML SYG IV (21:58)
[2018-11-23] MEDS: NORepinephrine 8MG/250 ML (PMX 250 ML IV (22:06)
[2018-11-23] MEDS: BUMETANIDE 6 MG in DEXTROSE 5% 36 ML IV (22:36)
[2018-11-23] MEDS: DILTIAZEM-D5W 125MG/125ML DRIP 125 ML IV (22:36)
[2018-11-24] MEDS: ACCU-CHEK XX ×24 (01:00→23:00)
[2018-11-24] MEDS: INSULIN HUMAN REGULAR 100 UNIT in SOD CHLORIDE 0.9% 99 ML IV ×2 (03:04→19:00)
[2018-11-24] MEDS: ACETAMINOPHEN 1000MG/100ML IV 100 ML IVPB (03:07)
[2018-11-24] MEDS: CALCIUM CHLORIDE 10% 1 GM in DEXTROSE 5%-0.225% NACL 1,000 ML IV ×2 (04:54→22:25)
[2018-11-24 05:09] LABS: ABNORMAL IP MESSAGE 1; ADD MAN DIFF? NO; BASOPHILS % 0.2 % (0.0-2.0); EOSINOPHILS # 0.1 10^3/ul (0.0-0.5); EOSINOPHILS % 0.5 % (0.0-7.0); HEMOGLOBIN 8.6 g/dl (12.0-16.0); LYMPHOCYTES # 1.4 10^3/ul (0.8-2.9); LYMPHOCYTES % 11.4 % (15.0-51.0); MEAN CORPUSCULAR HGB CONC 31.9 g/dl (32.0-37.0); MEAN CORPUSCULAR VOLUME 90.9 fl (82.0-101.0); MEAN PLATELET VOLUME 11.6 fl (7.4-10.4); MONOCYTE # 0.7 10^3/ul (0.3-0.9); MONOCYTES % 5.7 % (0.0-11.0); NEUTROPHIL # 9.9 10^3/ul (1.6-7.5); NEUTROPHILS % 81.2 % (39.0-77.0); PLATELET COUNT 92 10^3/UL (140-415); RED BLOOD COUNT 2.97 10^6/ul (4.20-5.40)
[2018-11-24 05:09] LABS: WHITE BLOOD COUNT 12.1 10^3/ul (4.8-10.8)
[2018-11-24 05:27] LABS: POSITIVE DIFF @See below
[2018-11-24 05:32] LABS: AADO2 Arterial 604.8 mmHg (7.0-24.0); Allen Test ACCEPTAB; Arterial Base Excess -1.5 mmol/L (-3.0-3); Arterial Blood Gas Oxygen Sat 91.9 mmHG (95.0-100.0); Arterial COHb 0.3 % (0.0-3.0); Arterial Fraction of Oxyhgb 91.4 % (93.0-99.0); Arterial HCO3 23.8 mmol/L (22.0-26.0); Arterial MetHb 0.2 % (0.0-1.5); Arterial pCO2 42.4 mmhg (35-45); Blood Gas IEPAP 18/8; Blood Gas PS 10; MODE MASK - BIPAP; Site A-Line
[2018-11-24 06:10] LABS: ANION GAP 8 (5-13); BLOOD UREA NITROGEN 31 mg/dl (7-20); CALCIUM 9.7 mg/dl (8.4-10.2); CARBON DIOXIDE 26 mmol/L (21-31); CHLORIDE 108 mmol/L (97-110); CREATININE 1.08 mg/dl (0.44-1.00); GLUCOSE 204 mg/dl (70-220); SODIUM 142 mmol/L (135-144)
[2018-11-24 06:30] LABS: POTASSIUM 4.4 mmol/L (3.5-5.1)
[2018-11-24] MEDS: PROPOFOL 100 ML IV (08:00)
[2018-11-24] MEDS ORDERED: ACETAMINOPHEN 1000MG/100ML IV 100 ML IVPB (08:00)
[2018-11-24 08:13] LABS: PHOSPHORUS 4.1 mg/dl (2.5-4.9)
[2018-11-24] MEDS: FUROSEMIDE 40 MG INJ IV ×2 (08:26→20:24)
[2018-11-24] MEDS: morphine 2 MG INJ IV (08:45)
[2018-11-24 08:46] LABS: AADO2 Arterial 575.6 mmHg (7.0-24.0); Arterial Base Excess -0.3 mmol/L (-3.0-3); Arterial Blood Gas Oxygen Sat 96.7 mmHG (95.0-100.0); Arterial COHb 0.1 % (0.0-3.0); Arterial Fraction of Oxyhgb 96.2 % (93.0-99.0); Arterial HCO3 24.9 mmol/L (22.0-26.0); Arterial MetHb 0.4 % (0.0-1.5); Arterial pCO2 43.1 mmhg (35-45); Blood Gas IEPAP 18/8; Blood Gas PS 10; MODE MASK - BIPAP; Site A-Line
[2018-11-24] MEDS: ASPIRIN 81 MG TAB NGT (09:48)
[2018-11-24] MEDS: BENAZEPRIL 20 MG TAB PO (09:48)
[2018-11-24] MEDS: ENOXAPARIN 30 MG/0.3 ML SYG SC ×2 (09:49→21:09)
[2018-11-24] MEDS: AMIODARONE 200 MG TAB PO ×2 (13:12→21:07)
[2018-11-24] MEDS: FAMOTIDINE 20 MG INJ IV (13:42)
[2018-11-24] MEDS: METOPROLOL 25 MG TAB PO ×2 (13:43→21:08)
[2018-11-24] MEDS: ACETAMINOPHEN 325 MG TAB PO (15:54)
[2018-11-24] MEDS: MAGNESIUM SULFATE 1 GM/D5W 100 ML IVPB (18:57)
[2018-11-24] MEDS ORDERED: GLUCOSE GEL 15 GRAM TUBE BUCCAL (20:30)
[2018-11-24] MEDS ORDERED: GLUCAGON 1 MG INJ IM (20:30)
[2018-11-24] MEDS ORDERED: GLUCOSE GEL 15 GRAM TUBE PO ×2 (20:30)
[2018-11-24] MEDS ORDERED: DEXTROSE 50% 50 ML SYRINGE IV ×2 (20:30)
[2018-11-24] MEDS: ATORVASTATIN 80 MG TAB PO (21:06)
[2018-11-24] MEDS: INSULIN GLARGINE [LANTus] (100 UNITS/ML) SYG SC (21:34)
[2018-11-25] MEDS: ACCU-CHEK XX ×12 (01:00→11:00)
[2018-11-25] MEDS: CALCIUM CHLORIDE 10% 1 GM in DEXTROSE 5%-0.225% NACL 1,000 ML IV (04:19)
[2018-11-25 05:01] LABS: Arterial Base Excess 2.5 mmol/L (-3.0-3); Arterial Blood Gas Oxygen Sat 95.9 mmHG (95.0-100.0); Arterial COHb 0.3 % (0.0-3.0); Arterial Fraction of Oxyhgb 95.4 % (93.0-99.0); Arterial HCO3 27.1 mmol/L (22.0-26.0); Arterial MetHb 0.2 % (0.0-1.5); Blood Gas IEPAP 18/8; Blood Gas PS 10; MODE BIPAP - S/T; Site A-Line
[2018-11-25 05:22] LABS: ADD MAN DIFF? NO
[2018-11-25 05:36] LABS: BASOPHILS % 0.2 % (0.0-2.0); EOSINOPHILS # 0.2 10^3/ul (0.0-0.5); EOSINOPHILS % 2.2 % (0.0-7.0); HEMATOCRIT 25.5 % (37.0-47.0); HEMOGLOBIN 8.2 g/dl (12.0-16.0); LYMPHOCYTES # 1.1 10^3/ul (0.8-2.9); LYMPHOCYTES % 13.2 % (15.0-51.0); MEAN CORPUSCULAR HEMOGLOBIN 28.9 pg (29.0-33.0); MEAN CORPUSCULAR HGB CONC 32.2 g/dl (32.0-37.0); MEAN CORPUSCULAR VOLUME 89.8 fl (82.0-101.0); MEAN PLATELET VOLUME 11.8 fl (7.4-10.4); MONOCYTE # 0.7 10^3/ul (0.3-0.9); MONOCYTES % 7.6 % (0.0-11.0); NEUTROPHIL # 6.5 10^3/ul (1.6-7.5); NEUTROPHILS % 76.1 % (39.0-77.0); PLATELET COUNT 116 10^3/UL (140-415); RED BLOOD COUNT 2.84 10^6/ul (4.20-5.40); RED CELL DISTRIBUTION WIDTH 14.6 % (11.5-14.5)
[2018-11-25 05:36] LABS: WHITE BLOOD COUNT 8.6 10^3/ul (4.8-10.8)
[2018-11-25 06:19] LABS: FREE THYROXINE INDEX (Calc) 2.01 ug/ml (0.65-3.89); T3 UPTAKE 37.2 % (23.5-40.5); T4 (THYROXINE) 5.4 ug/dl (5.5-11.0)
[2018-11-25 06:29] LABS: ANION GAP 6 (5-13); BLOOD UREA NITROGEN 31 mg/dl (7-20); CALCIUM 9.3 mg/dl (8.4-10.2); CARBON DIOXIDE 29 mmol/L (21-31); CHLORIDE 107 mmol/L (97-110); GLUCOSE 130 mg/dl (70-220); POTASSIUM 3.7 mmol/L (3.5-5.1); SODIUM 142 mmol/L (135-144)
[2018-11-25 06:41] LABS: PHOSPHORUS 3.7 mg/dl (2.5-4.9)
[2018-11-25 06:41] LABS: MAGNESIUM 1.9 mg/dl (1.7-2.5)
[2018-11-25] MEDS: FUROSEMIDE 40 MG INJ IV ×3 (08:40→11:24)
[2018-11-25] MEDS: AMIODARONE 200 MG TAB PO ×3 (08:40→20:28)
[2018-11-25] MEDS: ASPIRIN 81 MG TAB NGT (08:40)
[2018-11-25] MEDS: METOPROLOL 25 MG TAB PO ×2 (08:41→13:03)
[2018-11-25] MEDS: ENOXAPARIN 30 MG/0.3 ML SYG SC ×2 (08:43→20:26)
[2018-11-25 08:52] LABS: LACTIC ACID 0.7 mmol/L (0.5-2.0)
[2018-11-25] MEDS: INSULIN ASPART [NOVOLOG] 3 ML PEN SC ×5 (09:50→21:00)
[2018-11-25] MEDS ORDERED: AMIODARONE 150MG/D5W BOLUS 100 ML (10:27)
[2018-11-25] MEDS: AMIODARONE 150MG/D5W BOLUS 100 ML IV (10:29)
[2018-11-25] MEDS: morphine 2 MG INJ IV (10:51)
[2018-11-25] MEDS: MAGNESIUM SULFATE 2 GM/50 ML 50 ML IVPB (17:28)
[2018-11-25] MEDS: INSULIN GLARGINE [LANTus] (100 UNITS/ML) SYG SC (20:26)
[2018-11-25] MEDS: METOPROLOL 50 MG TAB PO (20:28)
[2018-11-25] MEDS: ATORVASTATIN 80 MG TAB PO (20:28)
[2018-11-26] MEDS: morphine 2 MG INJ IV ×2 (00:13→06:25)
[2018-11-26 04:45] LABS: AADO2 Arterial 537.4 mmHg (7.0-24.0); Allen Test ACCEPTAB; Arterial Base Excess 5.6 mmol/L (-3.0-3); Arterial Blood Gas Oxygen Sat 88.1 mmHG (95.0-100.0); Arterial COHb 0.3 % (0.0-3.0); Arterial Fraction of Oxyhgb 87.7 % (93.0-99.0); Arterial HCO3 30.7 mmol/L (22.0-26.0); Arterial MetHb 0.2 % (0.0-1.5); Arterial pCO2 46.7 mmhg (35-45); MODE HFNC; Site Left Radial
[2018-11-26 05:18] LABS: ADD MAN DIFF? NO
[2018-11-26 05:27] LABS: BASOPHILS % 0.2 % (0.0-2.0); EOSINOPHILS # 0.3 10^3/ul (0.0-0.5); EOSINOPHILS % 2.7 % (0.0-7.0); HEMOGLOBIN 8.5 g/dl (12.0-16.0); LYMPHOCYTES # 1.3 10^3/ul (0.8-2.9); LYMPHOCYTES % 13.9 % (15.0-51.0); MEAN CORPUSCULAR HEMOGLOBIN 28.5 pg (29.0-33.0); MEAN CORPUSCULAR HGB CONC 31.5 g/dl (32.0-37.0); MEAN CORPUSCULAR VOLUME 90.6 fl (82.0-101.0); MEAN PLATELET VOLUME 11.3 fl (7.4-10.4); MONOCYTE # 0.9 10^3/ul (0.3-0.9); MONOCYTES % 9.6 % (0.0-11.0); NEUTROPHIL # 6.7 10^3/ul (1.6-7.5); NEUTROPHILS % 72.7 % (39.0-77.0); RED BLOOD COUNT 2.98 10^6/ul (4.20-5.40); RED CELL DISTRIBUTION WIDTH 14.5 % (11.5-14.5)
[2018-11-26 05:27] LABS: WHITE BLOOD COUNT 9.3 10^3/ul (4.8-10.8)
[2018-11-26 05:38] LABS: PLATELET COUNT 141 10^3/UL (140-415)
[2018-11-26 05:48] LABS: ANION GAP 8 (5-13); BLOOD UREA NITROGEN 25 mg/dl (7-20); CALCIUM 8.5 mg/dl (8.4-10.2); CARBON DIOXIDE 34 mmol/L (21-31); CHLORIDE 101 mmol/L (97-110); CREATININE 0.54 mg/dl (0.44-1.00); GLUCOSE 129 mg/dl (70-220); POTASSIUM 3.6 mmol/L (3.5-5.1); SODIUM 143 mmol/L (135-144)
[2018-11-26 06:46] LABS: MAGNESIUM 2.3 mg/dl (1.7-2.5)
[2018-11-26 06:46] LABS: PHOSPHORUS 3.2 mg/dl (2.5-4.9)
[2018-11-26] MEDS: AMIODARONE 200 MG TAB PO ×3 (06:57→20:36)
[2018-11-26] MEDS: INSULIN ASPART [NOVOLOG] 3 ML PEN SC ×7 (07:35→20:31)
[2018-11-26] MEDS ORDERED: POTASSIUM CHLORIDE 100 ML IVPB (07:54)
[2018-11-26] MEDS: DIGOXIN 500 MCG INJ IV (08:00)
[2018-11-26] MEDS: POTASSIUM CHLORIDE 50 ML IVPB ×2 (08:01→09:55)
[2018-11-26] MEDS: FUROSEMIDE 40 MG INJ IV ×2 (08:01→17:39)
[2018-11-26] MEDS: METOPROLOL 50 MG TAB PO ×3 (09:12→20:37)
[2018-11-26] MEDS: LINAGLIPTIN 5 MG TABLET PO (09:12)
[2018-11-26] MEDS: ASPIRIN 81 MG TAB NGT (09:13)
[2018-11-26] MEDS: ENOXAPARIN 30 MG/0.3 ML SYG SC ×2 (09:15→20:38)
[2018-11-26] MEDS: MAGNESIUM SULFATE 2 GM/50 ML 50 ML IVPB (09:30)
[2018-11-26] MEDS: LIDOCAINE 1% (MPF) 5 ML VIAL (11:35)
[2018-11-26] MEDS: CEFEPIME 2GM/50 ML IVPB (12:05)
[2018-11-26 12:41] LABS: FLD MN% 61.4 %; FLD PMN% 38.6 %; FLD RBC 32000 /uL; FLD WBC 184 /cmm
[2018-11-26 12:44] LABS: FLUID GLUCOSE 148 mg/dl; FLUID LD 953 U/L; FLUID TOTAL PROTEIN 2.6 g/dl; FLUID TYPE THORACENTESIS FLUID
[2018-11-26 12:45] LABS: FLUID TYPE THORACENTESIS FLUID
[2018-11-26] MEDS: ALBUTEROL/IPRATROPIUM (NEB) 3 ML AMP HHN ×3 (12:47→20:30)
[2018-11-26] MEDS: ACETYLCYSTEINE 20% 4 ML VIAL NEB ×3 (13:01→20:30)
[2018-11-26 13:06] LABS: FLD CLARITY CLOUDY; FLD COLOR ORANGE
[2018-11-26 13:06] LABS: FLD TYPE THORACENTHESIS
[2018-11-26] MEDS: DOCUSATE SODIUM 100 MG CAP PO (17:18)
[2018-11-26] MEDS: INSULIN GLARGINE [LANTus] (100 UNITS/ML) SYG SC (20:15)
[2018-11-26] MEDS: POLYETHYLENE GLYCOL 17 GM PACKET PO (20:36)
[2018-11-26] MEDS: ATORVASTATIN 80 MG TAB PO (20:36)
[2018-11-27] MEDS: CEFEPIME 2GM/50 ML IVPB ×3 (00:12→23:09)
[2018-11-27] MEDS: ALBUTEROL/IPRATROPIUM (NEB) 3 ML AMP HHN ×4 (02:05→19:55)
[2018-11-27] MEDS: ACETYLCYSTEINE 20% 4 ML VIAL NEB ×4 (02:05→19:55)
[2018-11-27 04:58] LABS: ADD MAN DIFF? NO
[2018-11-27 05:02] LABS: WHITE BLOOD COUNT 10.2 10^3/ul (4.8-10.8)
[2018-11-27 05:02] LABS: BASOPHILS % 0.3 % (0.0-2.0); EOSINOPHILS # 0.2 10^3/ul (0.0-0.5); EOSINOPHILS % 1.8 % (0.0-7.0); HEMATOCRIT 28.9 % (37.0-47.0); HEMOGLOBIN 9.3 g/dl (12.0-16.0); LYMPHOCYTES # 1.4 10^3/ul (0.8-2.9); MEAN CORPUSCULAR HEMOGLOBIN 29.1 pg (29.0-33.0); MEAN CORPUSCULAR HGB CONC 32.2 g/dl (32.0-37.0); MEAN CORPUSCULAR VOLUME 90.3 fl (82.0-101.0); MEAN PLATELET VOLUME 10.5 fl (7.4-10.4); NEUTROPHIL # 7.4 10^3/ul (1.6-7.5); NUCLEATED RED BLOOD CELLS% 0.3 /100WBC (0.0-0.0); PLATELET COUNT 171 10^3/UL (140-415); RED CELL DISTRIBUTION WIDTH 14.1 % (11.5-14.5)
[2018-11-27 05:25] LABS: PHOSPHORUS 2.5 mg/dl (2.5-4.9)
[2018-11-27 05:26] LABS: ANION GAP 8 (5-13); BLOOD UREA NITROGEN 18 mg/dl (7-20); CALCIUM 7.9 mg/dl (8.4-10.2); CARBON DIOXIDE 38 mmol/L (21-31); CHLORIDE 97 mmol/L (97-110); CREATININE 0.43 mg/dl (0.44-1.00); GLUCOSE 98 mg/dl (70-220); POTASSIUM 3.1 mmol/L (3.5-5.1); SODIUM 143 mmol/L (135-144)
[2018-11-27] MEDS: POTASSIUM CHLORIDE 50 ML IVPB ×3 (06:03→09:24)
[2018-11-27] MEDS: FUROSEMIDE 40 MG INJ IV ×2 (06:03→18:01)
[2018-11-27 06:09] LABS: MAGNESIUM 2.1 mg/dl (1.7-2.5)
[2018-11-27] MEDS: INSULIN ASPART [NOVOLOG] 3 ML PEN SC ×7 (07:35→21:00)
[2018-11-27] MEDS: AMIODARONE 200 MG TAB PO ×3 (08:36→20:59)
[2018-11-27] MEDS: ASPIRIN 81 MG TAB NGT (08:36)
[2018-11-27] MEDS: METOPROLOL 50 MG TAB PO ×3 (08:36→20:59)
[2018-11-27] MEDS: LINAGLIPTIN 5 MG TABLET PO (08:37)
[2018-11-27] MEDS: POLYETHYLENE GLYCOL 17 GM PACKET PO ×2 (08:37→20:58)
[2018-11-27] MEDS: ENOXAPARIN 30 MG/0.3 ML SYG SC (08:38)
[2018-11-27 08:43] LABS: Allen Test ACCEPTAB; Arterial Base Excess 12.9 mmol/L (-3.0-3); Arterial Blood Gas Oxygen Sat 88.5 mmHG (95.0-100.0); Arterial COHb 0.2 % (0.0-3.0); Arterial Fraction of Oxyhgb 88.1 % (93.0-99.0); Arterial HCO3 36.9 mmol/L (22.0-26.0); Arterial MetHb 0.3 % (0.0-1.5); Arterial pCO2 44.2 mmhg (35-45); MODE HFNC; Site Right Radial
[2018-11-27] MEDS: POTASSIUM CHLORIDE (SR) 20 MEQ TAB PO ×2 (10:22→16:05)
[2018-11-27] MEDS ORDERED: POTASSIUM CHLORIDE (SR) 20 MEQ TAB PO (16:00)
[2018-11-27] MEDS: INSULIN GLARGINE [LANTus] (100 UNITS/ML) SYG SC (20:41)
[2018-11-27] MEDS: ATORVASTATIN 80 MG TAB PO (20:58)
[2018-11-27] MEDS: ENOXAPARIN 100 MG/ML SYG SC (21:03)
[2018-11-27] MEDS ORDERED: LEVALBUTEROL (NEB) 0.63 MG/3 ML AMP (23:42)
[2018-11-27] MEDS: LEVALBUTEROL (NEB) 0.63 MG/3 ML AMP HHN (23:47)
[2018-11-28] MEDS: ACETYLCYSTEINE 20% 4 ML VIAL NEB ×4 (01:09→20:13)
[2018-11-28] MEDS: ALBUTEROL/IPRATROPIUM (NEB) 3 ML AMP HHN ×4 (01:09→20:13)
[2018-11-28] MEDS: morphine 2 MG INJ IV (02:35)
[2018-11-28] MEDS: LEVALBUTEROL (NEB) 0.63 MG/3 ML AMP HHN (04:00)
[2018-11-28 04:13] LABS: ADD MAN DIFF? NO
[2018-11-28 04:17] LABS: WHITE BLOOD COUNT 10.3 10^3/ul (4.8-10.8)
[2018-11-28 04:17] LABS: BASOPHILS % 0.3 % (0.0-2.0); EOSINOPHILS # 0.2 10^3/ul (0.0-0.5); HEMATOCRIT 31.1 % (37.0-47.0); HEMOGLOBIN 9.9 g/dl (12.0-16.0); LYMPHOCYTES # 1.2 10^3/ul (0.8-2.9); MEAN CORPUSCULAR HEMOGLOBIN 28.8 pg (29.0-33.0); MEAN CORPUSCULAR HGB CONC 31.8 g/dl (32.0-37.0); MEAN CORPUSCULAR VOLUME 90.4 fl (82.0-101.0); MEAN PLATELET VOLUME 10.3 fl (7.4-10.4); MONOCYTE # 0.9 10^3/ul (0.3-0.9); MONOCYTES % 8.4 % (0.0-11.0); NEUTROPHIL # 7.8 10^3/ul (1.6-7.5); NEUTROPHILS % 75.8 % (39.0-77.0); NUCLEATED RED BLOOD CELLS% 0.2 /100WBC (0.0-0.0); PLATELET COUNT 196 10^3/UL (140-415); RED BLOOD COUNT 3.44 10^6/ul (4.20-5.40); RED CELL DISTRIBUTION WIDTH 14.4 % (11.5-14.5)
[2018-11-28 04:51] LABS: PHOSPHORUS 2.3 mg/dl (2.5-4.9)
[2018-11-28 04:52] LABS: ANION GAP 4 (5-13); BLOOD UREA NITROGEN 16 mg/dl (7-20); CALCIUM 7.4 mg/dl (8.4-10.2); CARBON DIOXIDE 37 mmol/L (21-31); CHLORIDE 99 mmol/L (97-110); CREATININE 0.37 mg/dl (0.44-1.00); GLUCOSE 96 mg/dl (70-220); POTASSIUM 3.8 mmol/L (3.5-5.1); SODIUM 140 mmol/L (135-144)
[2018-11-28 05:05] LABS: AADO2 Arterial 510.4 mmHg (7.0-24.0); Allen Test ACCEPTAB; Arterial Base Excess 11.4 mmol/L (-3.0-3); Arterial Blood Gas Oxygen Sat 98.9 mmHG (95.0-100.0); Arterial COHb 0.2 % (0.0-3.0); Arterial Fraction of Oxyhgb 98.4 % (93.0-99.0); Arterial HCO3 35.6 mmol/L (22.0-26.0); Arterial MetHb 0.3 % (0.0-1.5); Arterial pCO2 44.7 mmhg (35-45); Blood Gas IEPAP 18/8; Blood Gas PS 10; MODE MASK - BIPAP; Site Left Radial
[2018-11-28] MEDS: FUROSEMIDE 40 MG INJ IV (05:44)
[2018-11-28] MEDS: INSULIN ASPART [NOVOLOG] 3 ML PEN SC ×7 (07:05→21:00)
[2018-11-28] MEDS: POLYETHYLENE GLYCOL 17 GM PACKET PO ×2 (07:54→21:00)
[2018-11-28] MEDS: ASPIRIN 81 MG TAB NGT (08:44)
[2018-11-28] MEDS: METOPROLOL 50 MG TAB PO ×3 (08:45→21:03)
[2018-11-28] MEDS: AMIODARONE 200 MG TAB PO ×3 (08:45→21:03)
[2018-11-28] MEDS: LINAGLIPTIN 5 MG TABLET PO (08:46)
[2018-11-28] MEDS: ENOXAPARIN 100 MG/ML SYG SC ×2 (08:51→21:05)
[2018-11-28 08:52] LABS: AADO2 Arterial 318.9 mmHg (7.0-24.0); Allen Test ACCEPTAB; Arterial Blood Gas Oxygen Sat 93.8 mmHG (95.0-100.0); Arterial COHb 0.5 % (0.0-3.0); Arterial Fraction of Oxyhgb 93.1 % (93.0-99.0); Arterial HCO3 31.5 mmol/L (22.0-26.0); Arterial MetHb 0.2 % (0.0-1.5); Arterial pCO2 39.6 mmhg (35-45); MODE HFNC; Site Right Radial
[2018-11-28] MEDS: CEFEPIME 2GM/50 ML IVPB (12:23)
[2018-11-28] MEDS: BUMETANIDE 1 MG INJ IV (16:06)
[2018-11-28] MEDS: POTASSIUM CHLORIDE (SR) 20 MEQ TAB PO (16:06)
[2018-11-28] MEDS: BUMETANIDE 3 MG in DEXTROSE 5% 18 ML IV (16:07)
[2018-11-28] MEDS: MAGNESIUM SULFATE 1 GM/D5W 100 ML IVPB (16:07)
[2018-11-28] MEDS: ZOLPIDEM 5 MG TAB PO (21:02)
[2018-11-28] MEDS: ATORVASTATIN 80 MG TAB PO (21:02)
[2018-11-28] MEDS: INSULIN GLARGINE [LANTus] (100 UNITS/ML) SYG SC (21:40)
[2018-11-29] MEDS: ALBUTEROL/IPRATROPIUM (NEB) 3 ML AMP HHN ×5 (01:02→20:14)
[2018-11-29] MEDS: ACETYLCYSTEINE 20% 4 ML VIAL NEB ×5 (01:02→20:14)
[2018-11-29] MEDS: CEFEPIME 2GM/50 ML IVPB ×2 (04:39→12:05)
[2018-11-29 05:15] LABS: ADD MAN DIFF? NO
[2018-11-29 05:19] LABS: BASOPHILS % 0.2 % (0.0-2.0); EOSINOPHILS # 0.3 10^3/ul (0.0-0.5); EOSINOPHILS % 3.3 % (0.0-7.0); HEMATOCRIT 29.9 % (37.0-47.0); HEMOGLOBIN 9.3 g/dl (12.0-16.0); LYMPHOCYTES # 1.9 10^3/ul (0.8-2.9); LYMPHOCYTES % 22.8 % (15.0-51.0); MEAN CORPUSCULAR HEMOGLOBIN 28.1 pg (29.0-33.0); MEAN CORPUSCULAR HGB CONC 31.1 g/dl (32.0-37.0); MEAN CORPUSCULAR VOLUME 90.3 fl (82.0-101.0); MEAN PLATELET VOLUME 10.5 fl (7.4-10.4); MONOCYTE # 0.7 10^3/ul (0.3-0.9); MONOCYTES % 8.7 % (0.0-11.0); NEUTROPHIL # 5.2 10^3/ul (1.6-7.5); PLATELET COUNT 210 10^3/UL (140-415); RED BLOOD COUNT 3.31 10^6/ul (4.20-5.40); RED CELL DISTRIBUTION WIDTH 14.7 % (11.5-14.5)
[2018-11-29 05:19] LABS: WHITE BLOOD COUNT 8.2 10^3/ul (4.8-10.8)
[2018-11-29 05:37] LABS: PHOSPHORUS 2.7 mg/dl (2.5-4.9)
[2018-11-29 05:40] LABS: MAGNESIUM 2.1 mg/dl (1.7-2.5)
[2018-11-29 05:41] LABS: ANION GAP 5 (5-13); BLOOD UREA NITROGEN 21 mg/dl (7-20); CALCIUM 7.3 mg/dl (8.4-10.2); CARBON DIOXIDE 40 mmol/L (21-31); CHLORIDE 95 mmol/L (97-110); CREATININE 0.59 mg/dl (0.44-1.00); GLUCOSE 98 mg/dl (70-220); POTASSIUM 3.4 mmol/L (3.5-5.1); SODIUM 140 mmol/L (135-144)
[2018-11-29] MEDS: BUMETANIDE 1 MG INJ IV (05:59)
[2018-11-29 07:27] LABS: AADO2 Arterial 454.1 mmHg (7.0-24.0); Allen Test ACCEPTAB; Arterial Base Excess 11.8 mmol/L (-3.0-3); Arterial Blood Gas Oxygen Sat 94.2 mmHG (95.0-100.0); Arterial COHb 0 % (0.0-3.0); Arterial Fraction of Oxyhgb 93.9 % (93.0-99.0); Arterial HCO3 36.1 mmol/L (22.0-26.0); Arterial MetHb 0.3 % (0.0-1.5); Arterial pCO2 45.5 mmhg (35-45); Blood Gas IEPAP 18/8; Blood Gas PS 10; MODE MASK - BIPAP; Site Right Radial
[2018-11-29] MEDS: INSULIN ASPART [NOVOLOG] 3 ML PEN SC ×7 (07:35→21:00)
[2018-11-29] MEDS: LINAGLIPTIN 5 MG TABLET PO (08:30)
[2018-11-29] MEDS: POLYETHYLENE GLYCOL 17 GM PACKET PO ×2 (08:30→20:54)
[2018-11-29] MEDS: ASPIRIN 81 MG TAB NGT (08:30)
[2018-11-29] MEDS: AMIODARONE 200 MG TAB PO ×3 (08:31→20:54)
[2018-11-29] MEDS: METOPROLOL 50 MG TAB PO ×3 (08:31→20:54)
[2018-11-29] MEDS: ENOXAPARIN 100 MG/ML SYG SC ×2 (08:32→20:56)
[2018-11-29] MEDS: BUMETANIDE 6 MG in DEXTROSE 5% 36 ML IV (12:05)
[2018-11-29] MEDS: POTASSIUM CHLORIDE (SR) 20 MEQ TAB PO (12:05)
[2018-11-29] MEDS: INSULIN GLARGINE [LANTus] (100 UNITS/ML) SYG SC (20:06)
[2018-11-29] MEDS: ATORVASTATIN 80 MG TAB PO (20:55)
[2018-11-29] MEDS: ZOLPIDEM 5 MG TAB PO (21:38)
[2018-11-30] MEDS: CEFEPIME 2GM/50 ML IVPB ×3 (01:00→23:56)
[2018-11-30] MEDS: ALBUTEROL/IPRATROPIUM (NEB) 3 ML AMP HHN ×4 (01:35→20:00)
[2018-11-30] MEDS: ACETYLCYSTEINE 20% 4 ML VIAL NEB ×4 (01:35→20:00)
[2018-11-30 05:11] LABS: ADD MAN DIFF? NO
[2018-11-30 05:14] LABS: WHITE BLOOD COUNT 10.1 10^3/ul (4.8-10.8)
[2018-11-30 05:14] LABS: BASOPHILS % 0.3 % (0.0-2.0); EOSINOPHILS # 0.3 10^3/ul (0.0-0.5); EOSINOPHILS % 3.4 % (0.0-7.0); HEMATOCRIT 30.7 % (37.0-47.0); HEMOGLOBIN 9.8 g/dl (12.0-16.0); LYMPHOCYTES % 19.5 % (15.0-51.0); MEAN CORPUSCULAR HEMOGLOBIN 28.7 pg (29.0-33.0); MEAN CORPUSCULAR HGB CONC 31.9 g/dl (32.0-37.0); MEAN PLATELET VOLUME 10.6 fl (7.4-10.4); MONOCYTE # 0.8 10^3/ul (0.3-0.9); MONOCYTES % 8.2 % (0.0-11.0); NEUTROPHIL # 6.8 10^3/ul (1.6-7.5); NEUTROPHILS % 67.4 % (39.0-77.0); PLATELET COUNT 248 10^3/UL (140-415); RED BLOOD COUNT 3.41 10^6/ul (4.20-5.40); RED CELL DISTRIBUTION WIDTH 14.8 % (11.5-14.5)
[2018-11-30 05:47] LABS: PHOSPHORUS 2.2 mg/dl (2.5-4.9)
[2018-11-30 05:47] LABS: MAGNESIUM 1.6 mg/dl (1.7-2.5)
[2018-11-30 05:54] LABS: ANION GAP 6 (5-13); BLOOD UREA NITROGEN 23 mg/dl (7-20); CALCIUM 7.2 mg/dl (8.4-10.2); CARBON DIOXIDE 37 mmol/L (21-31); CHLORIDE 96 mmol/L (97-110); CREATININE 0.63 mg/dl (0.44-1.00); GLUCOSE 110 mg/dl (70-220); POTASSIUM 3.4 mmol/L (3.5-5.1); SODIUM 139 mmol/L (135-144)
[2018-11-30] MEDS: INSULIN ASPART [NOVOLOG] 3 ML PEN SC ×7 (07:35→21:00)
[2018-11-30 07:42] LABS: AADO2 Arterial 252.7 mmHg (7.0-24.0); Allen Test ACCEPTAB; Arterial Base Excess 9.2 mmol/L (-3.0-3); Arterial COHb 0.2 % (0.0-3.0); Arterial Fraction of Oxyhgb 91.6 % (93.0-99.0); Arterial HCO3 32.3 mmol/L (22.0-26.0); Arterial MetHb 0.2 % (0.0-1.5); Arterial pCO2 38.4 mmhg (35-45); MODE HFNC; Site Right Radial
[2018-11-30] MEDS ORDERED: BUMETANIDE 1 MG INJ IV (08:00)
[2018-11-30] MEDS: LINAGLIPTIN 5 MG TABLET PO (08:50)
[2018-11-30] MEDS: ASPIRIN 81 MG TAB NGT (08:51)
[2018-11-30] MEDS: METOPROLOL 50 MG TAB PO ×4 (08:51→21:08)
[2018-11-30] MEDS: POTASSIUM CHLORIDE 50 ML IVPB ×2 (08:52→10:51)
[2018-11-30] MEDS: MAGNESIUM SULFATE 2 GM/50 ML 50 ML IVPB (08:53)
[2018-11-30] MEDS: POLYETHYLENE GLYCOL 17 GM PACKET PO ×2 (08:55→21:00)
[2018-11-30] MEDS: ENOXAPARIN 100 MG/ML SYG SC ×2 (08:57→20:45)
[2018-11-30] MEDS ORDERED: POTASSIUM PHOSPHATE 15 MM in SOD CHLORIDE 0.9% 250 ML IVPB (09:00)
[2018-11-30] MEDS ORDERED: MAGNESIUM SULFATE 2 GM/50 ML 50 ML IVPB (09:00)
[2018-11-30] MEDS: AMIODARONE 200 MG TAB PO ×2 (09:15→14:09)
[2018-11-30] MEDS: BUMETANIDE 3 MG in DEXTROSE 5% 18 ML IV (10:10)
[2018-11-30] MEDS ORDERED: BUMETANIDE 6 MG in DEXTROSE 5% 36 ML IV (11:00)
[2018-11-30] MEDS: LIDOCAINE 1% (MPF) 5 ML VIAL SC (12:30)
[2018-11-30] MEDS: BUMETANIDE 3 MG in DEXTROSE 5% 30 ML IVPB (14:09)
[2018-11-30] MEDS: WARFARIN 5 MG TAB PO (17:05)
[2018-11-30] MEDS: ATORVASTATIN 80 MG TAB PO (20:43)
[2018-11-30] MEDS: INSULIN GLARGINE [LANTus] (100 UNITS/ML) SYG SC (21:03)
[2018-12-01] MEDS: ALBUTEROL/IPRATROPIUM (NEB) 3 ML AMP HHN ×4 (02:19→20:16)
[2018-12-01] MEDS: ACETYLCYSTEINE 20% 4 ML VIAL NEB ×4 (02:19→20:15)
[2018-12-01] MEDS: morphine 2 MG INJ IV (02:58)
[2018-12-01] MEDS: AMIODARONE 200 MG TAB PO ×4 (04:31→21:10)
[2018-12-01 06:08] LABS: ADD MAN DIFF? NO
[2018-12-01 06:14] LABS: BASOPHILS % 0.3 % (0.0-2.0); EOSINOPHILS # 0.4 10^3/ul (0.0-0.5); EOSINOPHILS % 3.6 % (0.0-7.0); HEMATOCRIT 29.4 % (37.0-47.0); HEMOGLOBIN 9.4 g/dl (12.0-16.0); LYMPHOCYTES # 2.4 10^3/ul (0.8-2.9); MEAN CORPUSCULAR HEMOGLOBIN 29.1 pg (29.0-33.0); MEAN PLATELET VOLUME 10.8 fl (7.4-10.4); MONOCYTE # 0.9 10^3/ul (0.3-0.9); MONOCYTES % 7.8 % (0.0-11.0); NEUTROPHIL # 8.1 10^3/ul (1.6-7.5); NEUTROPHILS % 67.4 % (39.0-77.0); PLATELET COUNT 248 10^3/UL (140-415); RED BLOOD COUNT 3.23 10^6/ul (4.20-5.40); RED CELL DISTRIBUTION WIDTH 14.9 % (11.5-14.5)
[2018-12-01 06:33] LABS: INR 1.11; PROTIME 14.4 Sec (11.9-14.9); PT RATIO 1.1
[2018-12-01] MEDS: BUMETANIDE 1 MG INJ IV (06:34)
[2018-12-01 06:36] LABS: ANION GAP 7 (5-13); BLOOD UREA NITROGEN 22 mg/dl (7-20); CALCIUM 7.7 mg/dl (8.4-10.2); CARBON DIOXIDE 34 mmol/L (21-31); CHLORIDE 98 mmol/L (97-110); CREATININE 0.63 mg/dl (0.44-1.00); GLUCOSE 106 mg/dl (70-220); POTASSIUM 3.7 mmol/L (3.5-5.1); SODIUM 139 mmol/L (135-144)
[2018-12-01 07:39] LABS: MAGNESIUM 2.2 mg/dl (1.7-2.5)
[2018-12-01 08:57] LABS: AADO2 Arterial 162.6 mmHg (7.0-24.0); Allen Test ACCEPTAB; Arterial Base Excess 7.5 mmol/L (-3.0-3); Arterial Blood Gas Oxygen Sat 95.2 mmHG (95.0-100.0); Arterial COHb 0.3 % (0.0-3.0); Arterial Fraction of Oxyhgb 94.5 % (93.0-99.0); Arterial HCO3 31.1 mmol/L (22.0-26.0); Arterial MetHb 0.4 % (0.0-1.5); Arterial pCO2 40.2 mmhg (35-45); MODE VAPOTHERM; Site Right Radial
[2018-12-01] MEDS: METOPROLOL 50 MG TAB PO ×3 (08:57→21:09)
[2018-12-01] MEDS: LINAGLIPTIN 5 MG TABLET PO (08:57)
[2018-12-01] MEDS: ASPIRIN 81 MG TAB NGT (08:57)
[2018-12-01] MEDS: POLYETHYLENE GLYCOL 17 GM PACKET PO ×2 (08:59→21:09)
[2018-12-01] MEDS: INSULIN ASPART [NOVOLOG] 3 ML PEN SC ×7 (09:30→21:00)
[2018-12-01] MEDS: ENOXAPARIN 100 MG/ML SYG SC ×2 (09:31→21:13)
[2018-12-01] MEDS: CEFEPIME 2GM/50 ML IVPB (12:59)
[2018-12-01] MEDS ORDERED: INSULIN ASPART [NOVOLOG] 3 ML PEN SC (17:05)
[2018-12-01] MEDS: WARFARIN 5 MG TAB NGT (17:09)
[2018-12-01] MEDS ORDERED: INSULIN GLARGINE [LANTus] (100 UNITS/ML) SYG SC (20:00)
[2018-12-01] MEDS: ATORVASTATIN 80 MG TAB PO (21:09)
[2018-12-01] MEDS: INSULIN GLARGINE [LANTus] (100 UNITS/ML) SYG SC (22:06)
[2018-12-02] MEDS: CEFEPIME 2GM/50 ML IVPB ×2 (00:39→12:23)
[2018-12-02] MEDS: ACETYLCYSTEINE 20% 4 ML VIAL NEB ×4 (02:00→20:08)
[2018-12-02 02:03] LABS: UR COLOR RED (YELLOW)
[2018-12-02] MEDS: ALBUTEROL/IPRATROPIUM (NEB) 3 ML AMP HHN ×4 (02:03→20:07)
[2018-12-02 02:04] LABS: ADD UMIC YES; UR ASCORBIC ACID NEGATIVE (NEGATIVE); UR BACTERIA FEW /HPF (NONE SEEN); UR BILIRUBIN (Dip) NEGATIVE (NEGATIVE); UR BLOOD (Dip) 3+ mg/dL (NEGATIVE); UR CLARITY CLOUDY (CLEAR); UR GLUCOSE (Dip) 1+ mg/dL (NEGATIVE); UR KETONES (Dip) NEGATIVE (NEGATIVE); UR LEUKOCYTE ESTERASE (Dip) NEGATIVE Leu/ul (NEGATIVE); UR MUCUS FEW /HPF (NONE SEEN); UR NITRITE (Dip) NEGATIVE (NEGATIVE); UR RBC > 182 /HPF (0-5); UR SPECIFIC GRAVITY (Dip) 1.021 (1.003-1.030); UR TOTAL PROTEIN (Dip) 2+ mg/dl (NEGATIVE); UR UROBILINOGEN (Dip) NEGATIVE (NEGATIVE); UR WBC 0 /HPF (0-5)
[2018-12-02 04:55] LABS: ADD MAN DIFF? NO
[2018-12-02 04:57] LABS: WHITE BLOOD COUNT 12.4 10^3/ul (4.8-10.8)
[2018-12-02 04:57] LABS: BASOPHILS % 0.3 % (0.0-2.0); EOSINOPHILS # 0.4 10^3/ul (0.0-0.5); EOSINOPHILS % 3.1 % (0.0-7.0); HEMATOCRIT 27.5 % (37.0-47.0); HEMOGLOBIN 8.7 g/dl (12.0-16.0); LYMPHOCYTES # 2.1 10^3/ul (0.8-2.9); LYMPHOCYTES % 17.2 % (15.0-51.0); MEAN CORPUSCULAR HEMOGLOBIN 28.9 pg (29.0-33.0); MEAN CORPUSCULAR HGB CONC 31.6 g/dl (32.0-37.0); MEAN CORPUSCULAR VOLUME 91.4 fl (82.0-101.0); MEAN PLATELET VOLUME 10.5 fl (7.4-10.4); MONOCYTE # 0.8 10^3/ul (0.3-0.9); MONOCYTES % 6.6 % (0.0-11.0); NEUTROPHIL # 8.9 10^3/ul (1.6-7.5); NEUTROPHILS % 71.7 % (39.0-77.0); PLATELET COUNT 211 10^3/UL (140-415); RED BLOOD COUNT 3.01 10^6/ul (4.20-5.40); RED CELL DISTRIBUTION WIDTH 14.9 % (11.5-14.5)
[2018-12-02] MEDS: BUMETANIDE 1 MG INJ IV ×2 (05:16→12:23)
[2018-12-02 05:18] LABS: INR 1.14; PROTIME 14.7 Sec (11.9-14.9); PT RATIO 1.1
[2018-12-02 05:20] LABS: ANION GAP 8 (5-13); BLOOD UREA NITROGEN 21 mg/dl (7-20); CALCIUM 8.4 mg/dl (8.4-10.2); CARBON DIOXIDE 36 mmol/L (21-31); CHLORIDE 95 mmol/L (97-110); GLUCOSE 104 mg/dl (70-220); POTASSIUM 4.1 mmol/L (3.5-5.1); SODIUM 139 mmol/L (135-144)
[2018-12-02 05:58] LABS: MAGNESIUM 2.3 mg/dl (1.7-2.5)
[2018-12-02 05:58] LABS: PHOSPHORUS 3.5 mg/dl (2.5-4.9)
[2018-12-02] MEDS: INSULIN ASPART [NOVOLOG] 3 ML PEN SC ×7 (07:35→21:30)
[2018-12-02] MEDS: LINAGLIPTIN 5 MG TABLET PO (08:34)
[2018-12-02] MEDS: METOPROLOL 50 MG TAB PO ×3 (08:34→21:00)
[2018-12-02] MEDS: ASPIRIN 81 MG TAB NGT (08:34)
[2018-12-02] MEDS: POLYETHYLENE GLYCOL 17 GM PACKET PO ×2 (08:35→21:00)
[2018-12-02] MEDS: AMIODARONE 200 MG TAB PO ×3 (08:35→21:26)
[2018-12-02] MEDS: HYDROmorphONE 0.5 MG/0.5 ML SYG IV (08:36)
[2018-12-02] MEDS: ENOXAPARIN 100 MG/ML SYG SC ×2 (08:42→21:31)
[2018-12-02] MEDS: ONDANSETRON 4 MG INJ IV (13:36)
[2018-12-02] MEDS: INSULIN GLARGINE [LANTus] (100 UNITS/ML) SYG SC (20:02)
[2018-12-02] MEDS: ATORVASTATIN 80 MG TAB PO (21:26)
[2018-12-03] MEDS: CEFEPIME 2GM/50 ML IVPB ×2 (00:33→12:31)
[2018-12-03] MEDS: ALBUTEROL/IPRATROPIUM (NEB) 3 ML AMP HHN ×4 (01:39→20:35)
[2018-12-03] MEDS: ACETYLCYSTEINE 20% 4 ML VIAL NEB ×6 (01:39→20:53)
[2018-12-03 05:18] LABS: AADO2 Arterial 161.9 mmHg (7.0-24.0); Allen Test ACCEPTAB; Arterial Base Excess 7.1 mmol/L (-3.0-3); Arterial Blood Gas Oxygen Sat 93.2 mmHG (95.0-100.0); Arterial COHb 0.7 % (0.0-3.0); Arterial Fraction of Oxyhgb 92.3 % (93.0-99.0); Arterial HCO3 31.8 mmol/L (22.0-26.0); Arterial MetHb 0.3 % (0.0-1.5); Arterial pCO2 46.1 mmhg (35-45); MODE HFNC; Site Right Radial
[2018-12-03] MEDS: BUMETANIDE 1 MG INJ IV ×2 (06:15→17:15)
[2018-12-03 06:28] LABS: ADD MAN DIFF? NO
[2018-12-03 06:37] LABS: LACTIC ACID 1.1 mmol/L (0.5-2.0)
[2018-12-03 06:41] LABS: WHITE BLOOD COUNT 12.2 10^3/ul (4.8-10.8)
[2018-12-03 06:41] LABS: BASOPHILS % 0.3 % (0.0-2.0); EOSINOPHILS # 0.4 10^3/ul (0.0-0.5); EOSINOPHILS % 3.6 % (0.0-7.0); HEMATOCRIT 26.9 % (37.0-47.0); HEMOGLOBIN 8.7 g/dl (12.0-16.0); LYMPHOCYTES # 1.8 10^3/ul (0.8-2.9); LYMPHOCYTES % 14.5 % (15.0-51.0); MEAN CORPUSCULAR HEMOGLOBIN 29.5 pg (29.0-33.0); MEAN CORPUSCULAR HGB CONC 32.3 g/dl (32.0-37.0); MEAN CORPUSCULAR VOLUME 91.2 fl (82.0-101.0); MEAN PLATELET VOLUME 11.1 fl (7.4-10.4); MONOCYTE # 0.8 10^3/ul (0.3-0.9); MONOCYTES % 6.8 % (0.0-11.0); PLATELET COUNT 251 10^3/UL (140-415); RED BLOOD COUNT 2.95 10^6/ul (4.20-5.40)
[2018-12-03 07:04] LABS: ALANINE AMINOTRANSFERASE 58 IU/L (13-69); ALBUMIN 3.2 g/dl (3.3-4.9); ALBUMIN/GLOBULIN RATIO 1.14; ALKALINE PHOSPHATASE 66 IU/L (42-121); ANION GAP 5 (5-13); ASPARTATE AMINO TRANSFERASE 32 IU/L (15-46); BILIRUBIN,INDIRECT 0.8 mg/dl (0-1.1); BILIRUBIN,TOTAL 0.8 mg/dl (0.2-1.3); BLOOD UREA NITROGEN 17 mg/dl (7-20); CALCIUM 8.7 mg/dl (8.4-10.2); CARBON DIOXIDE 35 mmol/L (21-31); CHLORIDE 97 mmol/L (97-110); CREATININE 0.64 mg/dl (0.44-1.00); GLUCOSE 120 mg/dl (70-220); SODIUM 137 mmol/L (135-144)
[2018-12-03 07:06] LABS: MAGNESIUM 2.3 mg/dl (1.7-2.5)
[2018-12-03] MEDS: INSULIN ASPART [NOVOLOG] 3 ML PEN SC ×7 (07:35→21:00)
[2018-12-03] MEDS: LINAGLIPTIN 5 MG TABLET PO (08:25)
[2018-12-03] MEDS: ASPIRIN 81 MG TAB NGT (08:26)
[2018-12-03] MEDS: AMIODARONE 200 MG TAB PO ×2 (08:26→21:13)
[2018-12-03] MEDS: BENAZEPRIL 20 MG TAB PO (08:27)
[2018-12-03] MEDS: METOPROLOL 50 MG TAB PO ×2 (08:27→21:00)
[2018-12-03] MEDS: POLYETHYLENE GLYCOL 17 GM PACKET PO ×2 (08:28→21:00)
[2018-12-03] MEDS: ENOXAPARIN 100 MG/ML SYG SC ×2 (08:38→21:18)
[2018-12-03] MEDS: SOD CHLORIDE 0.9% 100 ML (19:14)
[2018-12-03] MEDS: IOHEXOL 350MG/ML 50 ML BTL (19:14)
[2018-12-03] MEDS: IOHEXOL 100 ML (19:14)
[2018-12-03] MEDS: ATORVASTATIN 80 MG TAB PO (21:13)
[2018-12-03] MEDS: INSULIN GLARGINE [LANTus] (100 UNITS/ML) SYG SC (23:06)
[2018-12-03] MEDS: HYDROmorphONE 0.5 MG/0.5 ML SYG IV (23:17)
[2018-12-04] MEDS: CEFEPIME 2GM/50 ML IVPB ×2 (00:39→11:57)
[2018-12-04] MEDS: ACETYLCYSTEINE 20% 4 ML VIAL NEB ×4 (01:44→21:25)
[2018-12-04] MEDS: ALBUTEROL/IPRATROPIUM (NEB) 3 ML AMP HHN ×4 (02:06→21:25)
[2018-12-04] MEDS: BUMETANIDE 1 MG INJ IV (06:06)
[2018-12-04] MEDS: LINAGLIPTIN 5 MG TABLET PO (08:00)
[2018-12-04] MEDS: METOPROLOL 50 MG TAB PO ×3 (08:01→21:00)
[2018-12-04] MEDS: AMIODARONE 200 MG TAB PO ×4 (08:01→22:49)
[2018-12-04] MEDS: ENOXAPARIN 100 MG/ML SYG SC ×2 (08:01→21:07)
[2018-12-04] MEDS: POLYETHYLENE GLYCOL 17 GM PACKET PO ×3 (08:01→21:00)
[2018-12-04] MEDS: INSULIN ASPART [NOVOLOG] 3 ML PEN SC ×7 (08:02→21:00)
[2018-12-04 08:50] LABS: ADD MAN DIFF? NO
[2018-12-04 08:59] LABS: BASOPHILS % 0.3 % (0.0-2.0); EOSINOPHILS # 0.4 10^3/ul (0.0-0.5); EOSINOPHILS % 3.3 % (0.0-7.0); HEMATOCRIT 28.6 % (37.0-47.0); HEMOGLOBIN 8.9 g/dl (12.0-16.0); LYMPHOCYTES # 1.6 10^3/ul (0.8-2.9); LYMPHOCYTES % 14.8 % (15.0-51.0); MEAN CORPUSCULAR HEMOGLOBIN 28.9 pg (29.0-33.0); MEAN CORPUSCULAR HGB CONC 31.1 g/dl (32.0-37.0); MEAN CORPUSCULAR VOLUME 92.9 fl (82.0-101.0); MEAN PLATELET VOLUME 10.8 fl (7.4-10.4); MONOCYTE # 0.9 10^3/ul (0.3-0.9); MONOCYTES % 8.4 % (0.0-11.0); NEUTROPHIL # 7.7 10^3/ul (1.6-7.5); NEUTROPHILS % 72.2 % (39.0-77.0); PLATELET COUNT 262 10^3/UL (140-415); RED BLOOD COUNT 3.08 10^6/ul (4.20-5.40); RED CELL DISTRIBUTION WIDTH 15.4 % (11.5-14.5)
[2018-12-04 08:59] LABS: WHITE BLOOD COUNT 10.7 10^3/ul (4.8-10.8)
[2018-12-04 09:14] LABS: PHOSPHORUS 3.9 mg/dl (2.5-4.9)
[2018-12-04 09:22] LABS: ANION GAP 11 (5-13); BLOOD UREA NITROGEN 17 mg/dl (7-20); CALCIUM 8.7 mg/dl (8.4-10.2); CARBON DIOXIDE 33 mmol/L (21-31); CHLORIDE 94 mmol/L (97-110); CREATININE 0.72 mg/dl (0.44-1.00); GLUCOSE 128 mg/dl (70-220); POTASSIUM 3.8 mmol/L (3.5-5.1); SODIUM 138 mmol/L (135-144)
[2018-12-04] MEDS: ASPIRIN (EC) 81 MG TAB PO (10:20)
[2018-12-04] MEDS: LIDOCAINE 1% (MPF) 5 ML VIAL (14:21)
[2018-12-04] MEDS: BUMETANIDE 3 MG in DEXTROSE 5% 18 ML IV (17:55)
[2018-12-04] MEDS: ATORVASTATIN 80 MG TAB PO (20:55)
[2018-12-04] MEDS: INSULIN GLARGINE [LANTus] (100 UNITS/ML) SYG SC (21:07)
[2018-12-05] MEDS: HYDROmorphONE 0.5 MG/0.5 ML SYG IV (00:19)
[2018-12-05] MEDS: CEFEPIME 2GM/50 ML IVPB (01:08)
[2018-12-05] MEDS: NITROGLYCERIN (SL) 0.4 MG TAB SL ×2 (01:39→02:09)
[2018-12-05] MEDS: ALBUTEROL/IPRATROPIUM (NEB) 3 ML AMP HHN ×4 (01:48→20:24)
[2018-12-05] MEDS: ACETYLCYSTEINE 20% 4 ML VIAL NEB ×4 (01:48→20:24)
[2018-12-05] MEDS: BUMETANIDE 1 MG INJ IV ×2 (05:39→15:30)
[2018-12-05 07:49] LABS: ADD MAN DIFF? NO
[2018-12-05 07:52] LABS: WHITE BLOOD COUNT 8.1 10^3/ul (4.8-10.8)
[2018-12-05 07:52] LABS: BASOPHILS % 0.4 % (0.0-2.0); EOSINOPHILS # 0.3 10^3/ul (0.0-0.5); EOSINOPHILS % 3.6 % (0.0-7.0); HEMOGLOBIN 8.2 g/dl (12.0-16.0); LYMPHOCYTES # 1.5 10^3/ul (0.8-2.9); LYMPHOCYTES % 18.2 % (15.0-51.0); MEAN CORPUSCULAR HGB CONC 31.5 g/dl (32.0-37.0); MEAN CORPUSCULAR VOLUME 91.9 fl (82.0-101.0); MEAN PLATELET VOLUME 10.9 fl (7.4-10.4); MONOCYTE # 0.8 10^3/ul (0.3-0.9); MONOCYTES % 9.5 % (0.0-11.0); NEUTROPHIL # 5.5 10^3/ul (1.6-7.5); NEUTROPHILS % 67.7 % (39.0-77.0); PLATELET COUNT 239 10^3/UL (140-415); RED BLOOD COUNT 2.83 10^6/ul (4.20-5.40); RED CELL DISTRIBUTION WIDTH 15.5 % (11.5-14.5)
[2018-12-05] MEDS: LEVALBUTEROL (NEB) 0.63 MG/3 ML AMP HHN (07:56)
[2018-12-05 08:10] LABS: CREATINE KINASE 27 IU/L (23-200)
[2018-12-05 08:12] LABS: ANION GAP 7 (5-13); BLOOD UREA NITROGEN 17 mg/dl (7-20); CALCIUM 8.5 mg/dl (8.4-10.2); CARBON DIOXIDE 34 mmol/L (21-31); CHLORIDE 98 mmol/L (97-110); CREATININE 0.63 mg/dl (0.44-1.00); GLUCOSE 125 mg/dl (70-220); POTASSIUM 3.6 mmol/L (3.5-5.1); SODIUM 139 mmol/L (135-144)
[2018-12-05 08:13] LABS: MAGNESIUM 1.9 mg/dl (1.7-2.5)
[2018-12-05 08:13] LABS: PHOSPHORUS 3.7 mg/dl (2.5-4.9)
[2018-12-05 08:17] LABS: INR 1.06; PROTIME 13.9 Sec (11.9-14.9); PT RATIO 1.1
[2018-12-05 08:23] LABS: CK INDEX 4.5; CK-MB 1.21 ng/ml (0.0-2.4)
[2018-12-05 08:31] LABS: TROPONIN-I 0.151 ng/ml (0.000-0.120)
[2018-12-05] MEDS: INSULIN ASPART [NOVOLOG] 3 ML PEN SC ×7 (08:48→21:00)
[2018-12-05] MEDS: METOPROLOL 50 MG TAB PO ×2 (08:50→21:00)
[2018-12-05] MEDS: LINAGLIPTIN 5 MG TABLET PO (08:50)
[2018-12-05] MEDS: AMIODARONE 200 MG TAB PO ×2 (08:50→21:29)
[2018-12-05] MEDS: ASPIRIN (EC) 81 MG TAB PO (08:50)
[2018-12-05] MEDS: POLYETHYLENE GLYCOL 17 GM PACKET PO ×2 (08:51→21:00)
[2018-12-05] MEDS: ENOXAPARIN 100 MG/ML SYG SC (08:51)
[2018-12-05] MEDS ORDERED: DILTIAZEM 25 MG INJ IV (09:30)
[2018-12-05] MEDS: POTASSIUM CHLORIDE 20 MEQ POWDER FOR ORAL SOLN PO (09:32)
[2018-12-05] MEDS: DIGOXIN 500 MCG INJ IV (09:32)
[2018-12-05] MEDS: MAGNESIUM SULFATE 2 GM/50 ML 50 ML IVPB (09:33)
[2018-12-05] MEDS: BUMETANIDE 3 MG in DEXTROSE 5% 18 ML IV (15:30)
[2018-12-05] MEDS: INSULIN GLARGINE [LANTus] (100 UNITS/ML) SYG SC (20:53)
[2018-12-05] MEDS: ATORVASTATIN 80 MG TAB PO (21:30)
[2018-12-06] MEDS: ALBUTEROL/IPRATROPIUM (NEB) 3 ML AMP HHN ×4 (02:11→19:39)
[2018-12-06] MEDS: ACETYLCYSTEINE 20% 4 ML VIAL NEB ×4 (02:12→19:40)
[2018-12-06] MEDS ORDERED: BUMETANIDE 1 MG INJ IV (06:00)
[2018-12-06] MEDS: BUMETANIDE 2 MG in DEXTROSE 5% 17 ML IV ×2 (06:15→17:36)
[2018-12-06] MEDS: INSULIN ASPART [NOVOLOG] 3 ML PEN SC ×7 (07:55→20:50)
[2018-12-06] MEDS: LINAGLIPTIN 5 MG TABLET PO (08:00)
[2018-12-06] MEDS: AMIODARONE 200 MG TAB PO ×2 (08:01→20:53)
[2018-12-06] MEDS: POLYETHYLENE GLYCOL 17 GM PACKET PO ×2 (08:01→20:54)
[2018-12-06] MEDS: METOPROLOL 50 MG TAB PO ×2 (08:01→20:54)
[2018-12-06 08:24] LABS: ADD MAN DIFF? NO
[2018-12-06 08:31] LABS: WHITE BLOOD COUNT 8.1 10^3/ul (4.8-10.8)
[2018-12-06 08:31] LABS: BASOPHILS % 0.4 % (0.0-2.0); EOSINOPHILS # 0.3 10^3/ul (0.0-0.5); EOSINOPHILS % 3.6 % (0.0-7.0); HEMATOCRIT 28.1 % (37.0-47.0); HEMOGLOBIN 8.9 g/dl (12.0-16.0); LYMPHOCYTES # 1.5 10^3/ul (0.8-2.9); LYMPHOCYTES % 17.8 % (15.0-51.0); MEAN CORPUSCULAR HGB CONC 31.7 g/dl (32.0-37.0); MEAN CORPUSCULAR VOLUME 91.5 fl (82.0-101.0); MEAN PLATELET VOLUME 10.6 fl (7.4-10.4); MONOCYTE # 0.9 10^3/ul (0.3-0.9); MONOCYTES % 11.3 % (0.0-11.0); NEUTROPHIL # 5.4 10^3/ul (1.6-7.5); NEUTROPHILS % 66.3 % (39.0-77.0); PLATELET COUNT 260 10^3/UL (140-415); RED BLOOD COUNT 3.07 10^6/ul (4.20-5.40); RED CELL DISTRIBUTION WIDTH 15.7 % (11.5-14.5)
[2018-12-06 09:01] LABS: MAGNESIUM 2.1 mg/dl (1.7-2.5)
[2018-12-06 09:02] LABS: ANION GAP 9 (5-13); BLOOD UREA NITROGEN 16 mg/dl (7-20); CALCIUM 8.6 mg/dl (8.4-10.2); CARBON DIOXIDE 33 mmol/L (21-31); CHLORIDE 98 mmol/L (97-110); CREATININE 0.58 mg/dl (0.44-1.00); GLUCOSE 104 mg/dl (70-220); POTASSIUM 3.9 mmol/L (3.5-5.1); SODIUM 140 mmol/L (135-144)
[2018-12-06] MEDS: DIGOXIN 0.125 MG TAB PO (12:02)
[2018-12-06] MEDS: HYDROCODONE/APAP (10/325) TAB PO (17:38)
[2018-12-06] MEDS: POTASSIUM CHLORIDE (SR) 10 MEQ TAB PO (18:45)
[2018-12-06] MEDS: ATORVASTATIN 80 MG TAB PO (20:53)
[2018-12-06] MEDS: INSULIN GLARGINE [LANTus] (100 UNITS/ML) SYG SC (21:20)
[2018-12-07] MEDS: ALBUTEROL/IPRATROPIUM (NEB) 3 ML AMP HHN ×4 (02:00→18:08)
[2018-12-07] MEDS: ACETYLCYSTEINE 20% 4 ML VIAL NEB ×4 (02:00→18:08)
[2018-12-07] MEDS: BUMETANIDE 2 MG in DEXTROSE 5% 17 ML IV ×2 (05:17→17:30)
[2018-12-07 06:49] LABS: ADD MAN DIFF? NO
[2018-12-07 06:54] LABS: BASOPHILS % 0.3 % (0.0-2.0); EOSINOPHILS # 0.3 10^3/ul (0.0-0.5); EOSINOPHILS % 3.2 % (0.0-7.0); HEMATOCRIT 29.5 % (37.0-47.0); HEMOGLOBIN 9.2 g/dl (12.0-16.0); LYMPHOCYTES # 1.1 10^3/ul (0.8-2.9); LYMPHOCYTES % 13.1 % (15.0-51.0); MEAN CORPUSCULAR HEMOGLOBIN 28.8 pg (29.0-33.0); MEAN CORPUSCULAR HGB CONC 31.2 g/dl (32.0-37.0); MEAN CORPUSCULAR VOLUME 92.5 fl (82.0-101.0); MEAN PLATELET VOLUME 10.5 fl (7.4-10.4); MONOCYTE # 0.8 10^3/ul (0.3-0.9); MONOCYTES % 9.6 % (0.0-11.0); NEUTROPHIL # 6.4 10^3/ul (1.6-7.5); NEUTROPHILS % 73.1 % (39.0-77.0); PLATELET COUNT 267 10^3/UL (140-415); RED BLOOD COUNT 3.19 10^6/ul (4.20-5.40); RED CELL DISTRIBUTION WIDTH 15.8 % (11.5-14.5)
[2018-12-07 06:54] LABS: WHITE BLOOD COUNT 8.7 10^3/ul (4.8-10.8)
[2018-12-07 07:22] LABS: MAGNESIUM 1.9 mg/dl (1.7-2.5)
[2018-12-07 07:26] LABS: ANION GAP 10 (5-13); BLOOD UREA NITROGEN 16 mg/dl (7-20); CALCIUM 8.9 mg/dl (8.4-10.2); CARBON DIOXIDE 35 mmol/L (21-31); CHLORIDE 95 mmol/L (97-110); CREATININE 0.59 mg/dl (0.44-1.00); GLUCOSE 150 mg/dl (70-220); POTASSIUM 3.9 mmol/L (3.5-5.1); SODIUM 140 mmol/L (135-144)
[2018-12-07] MEDS: LINAGLIPTIN 5 MG TABLET PO (08:01)
[2018-12-07] MEDS: METOPROLOL 50 MG TAB PO ×2 (08:01→21:00)
[2018-12-07] MEDS: AMIODARONE 200 MG TAB PO ×2 (08:02→21:10)
[2018-12-07] MEDS: POLYETHYLENE GLYCOL 17 GM PACKET PO ×2 (09:00→21:00)
[2018-12-07] MEDS: INSULIN ASPART [NOVOLOG] 3 ML PEN SC ×7 (09:03→21:00)
[2018-12-07] MEDS: POTASSIUM CHLORIDE (SR) 10 MEQ TAB PO (12:36)
[2018-12-07] MEDS: DIGOXIN 0.125 MG TAB PO (12:38)
[2018-12-07] MEDS: ONDANSETRON 4 MG INJ IV (15:01)
[2018-12-07] MEDS: MAGNESIUM SULFATE 2 GM/50 ML 50 ML IVPB (15:01)
[2018-12-07] MEDS: ACETAZOLAMIDE 500 MG INJ IV (15:26)
[2018-12-07] MEDS: ATORVASTATIN 80 MG TAB PO (21:09)
[2018-12-07] MEDS: INSULIN GLARGINE [LANTus] (100 UNITS/ML) SYG SC (21:12)
[2018-12-08] MEDS: ACETYLCYSTEINE 20% 4 ML VIAL NEB ×4 (01:56→20:00)
[2018-12-08] MEDS: ALBUTEROL/IPRATROPIUM (NEB) 3 ML AMP HHN ×4 (01:56→20:00)
[2018-12-08] MEDS: BUMETANIDE 2 MG in DEXTROSE 5% 17 ML IV ×2 (05:37→17:15)
[2018-12-08] MEDS: INSULIN ASPART [NOVOLOG] 3 ML PEN SC ×7 (08:00→21:00)
[2018-12-08] MEDS: METOPROLOL 50 MG TAB PO ×2 (09:00→21:00)
[2018-12-08] MEDS: POLYETHYLENE GLYCOL 17 GM PACKET PO ×2 (09:00→21:00)
[2018-12-08] MEDS: AMIODARONE 200 MG TAB PO ×2 (09:00→21:04)
[2018-12-08] MEDS: LINAGLIPTIN 5 MG TABLET PO (09:11)
[2018-12-08] MEDS: DIGOXIN 0.125 MG TAB PO (13:35)
[2018-12-08] MEDS: HYDROCODONE/APAP (10/325) TAB PO (17:48)
[2018-12-08] MEDS: ATORVASTATIN 80 MG TAB PO (21:04)
[2018-12-08] MEDS: ONDANSETRON 4 MG INJ IV (21:04)
[2018-12-08] MEDS: INSULIN GLARGINE [LANTus] (100 UNITS/ML) SYG SC (21:11)
[2018-12-08] MEDS: METOCLOPRAMIDE 10 MG INJ IV (23:23)
[2018-12-08] MEDS ORDERED: METOCLOPRAMIDE 10 MG INJ IM (23:30)
[2018-12-09] MEDS: ALBUTEROL/IPRATROPIUM (NEB) 3 ML AMP HHN ×4 (01:15→20:46)
[2018-12-09] MEDS: ACETYLCYSTEINE 20% 4 ML VIAL NEB ×4 (01:15→20:46)
[2018-12-09] MEDS: BUMETANIDE 2 MG in DEXTROSE 5% 17 ML IV ×2 (06:29→18:05)
[2018-12-09] MEDS: INSULIN ASPART [NOVOLOG] 3 ML PEN SC ×7 (07:55→21:03)
[2018-12-09] MEDS: POLYETHYLENE GLYCOL 17 GM PACKET PO ×2 (09:00→20:59)
[2018-12-09] MEDS: AMIODARONE 200 MG TAB PO ×2 (09:49→20:57)
[2018-12-09] MEDS: LINAGLIPTIN 5 MG TABLET PO (09:49)
[2018-12-09] MEDS: METOPROLOL 50 MG TAB PO ×2 (09:50→20:58)
[2018-12-09] MEDS: DIGOXIN 0.125 MG TAB PO (12:32)
[2018-12-09] MEDS: ATORVASTATIN 80 MG TAB PO (20:57)
[2018-12-09] MEDS: INSULIN GLARGINE [LANTus] (100 UNITS/ML) SYG SC (21:03)
[2018-12-10] MEDS: ACETYLCYSTEINE 20% 4 ML VIAL NEB ×4 (01:06→20:00)
[2018-12-10] MEDS: ALBUTEROL/IPRATROPIUM (NEB) 3 ML AMP HHN ×4 (01:06→20:00)
[2018-12-10] MEDS: BUMETANIDE 2 MG in DEXTROSE 5% 17 ML IV ×2 (05:52→18:40)
[2018-12-10] MEDS: INSULIN ASPART [NOVOLOG] 3 ML PEN SC ×7 (07:51→21:22)
[2018-12-10] MEDS: AMIODARONE 200 MG TAB PO ×2 (08:44→21:23)
[2018-12-10] MEDS: POLYETHYLENE GLYCOL 17 GM PACKET PO ×2 (08:45→21:24)
[2018-12-10] MEDS: METOPROLOL 50 MG TAB PO ×2 (08:45→21:00)
[2018-12-10] MEDS: LINAGLIPTIN 5 MG TABLET PO (08:45)
[2018-12-10] MEDS: DIGOXIN 0.125 MG TAB PO (12:11)
[2018-12-10] MEDS: INSULIN GLARGINE [LANTus] (100 UNITS/ML) SYG SC (21:22)
[2018-12-10] MEDS: APIXABAN 5 MG TABLET PO (21:23)
[2018-12-10] MEDS: ATORVASTATIN 40 MG TAB PO (21:23)
[2018-12-11] MEDS: ACETYLCYSTEINE 20% 4 ML VIAL NEB ×4 (01:54→20:00)
[2018-12-11] MEDS: ALBUTEROL/IPRATROPIUM (NEB) 3 ML AMP HHN ×4 (01:54→20:00)
[2018-12-11] MEDS: INSULIN ASPART [NOVOLOG] 3 ML PEN SC ×7 (07:34→20:37)
[2018-12-11 08:20] LABS: ADD MAN DIFF? NO
[2018-12-11 08:26] LABS: WHITE BLOOD COUNT 5.9 10^3/ul (4.8-10.8)
[2018-12-11 08:26] LABS: BASOPHILS % 0.5 % (0.0-2.0); EOSINOPHILS # 0.3 10^3/ul (0.0-0.5); EOSINOPHILS % 4.6 % (0.0-7.0); HEMATOCRIT 30.2 % (37.0-47.0); HEMOGLOBIN 9.4 g/dl (12.0-16.0); LYMPHOCYTES # 1.3 10^3/ul (0.8-2.9); MEAN CORPUSCULAR HEMOGLOBIN 28.7 pg (29.0-33.0); MEAN CORPUSCULAR HGB CONC 31.1 g/dl (32.0-37.0); MEAN CORPUSCULAR VOLUME 92.1 fl (82.0-101.0); MEAN PLATELET VOLUME 10.3 fl (7.4-10.4); MONOCYTE # 0.6 10^3/ul (0.3-0.9); NEUTROPHIL # 3.7 10^3/ul (1.6-7.5); NEUTROPHILS % 62.4 % (39.0-77.0); PLATELET COUNT 216 10^3/UL (140-415); RED BLOOD COUNT 3.28 10^6/ul (4.20-5.40); RED CELL DISTRIBUTION WIDTH 15.6 % (11.5-14.5)
[2018-12-11] MEDS: LINAGLIPTIN 5 MG TABLET PO (08:30)
[2018-12-11] MEDS: METOPROLOL 50 MG TAB PO ×2 (08:31→20:36)
[2018-12-11] MEDS: POLYETHYLENE GLYCOL 17 GM PACKET PO ×2 (08:32→20:37)
[2018-12-11] MEDS: APIXABAN 5 MG TABLET PO ×2 (08:32→20:36)
[2018-12-11] MEDS: AMIODARONE 200 MG TAB PO (08:32)
[2018-12-11 08:55] LABS: ANION GAP 6 (5-13); BLOOD UREA NITROGEN 13 mg/dl (7-20); CALCIUM 8.8 mg/dl (8.4-10.2); CARBON DIOXIDE 35 mmol/L (21-31); CHLORIDE 98 mmol/L (97-110); CREATININE 0.61 mg/dl (0.44-1.00); GLUCOSE 107 mg/dl (70-220); POTASSIUM 3.6 mmol/L (3.5-5.1); SODIUM 139 mmol/L (135-144)
[2018-12-11 09:05] LABS: PHOSPHORUS 3.5 mg/dl (2.5-4.9)
[2018-12-11 09:05] LABS: MAGNESIUM 1.9 mg/dl (1.7-2.5)
[2018-12-11] MEDS: BUMETANIDE 1 MG TAB PO (10:04)
[2018-12-11] MEDS: DIGOXIN 0.125 MG TAB PO (12:39)
[2018-12-11] MEDS: HYDROCODONE/APAP (10/325) TAB PO (14:39)
[2018-12-11] MEDS ORDERED: BUMETANIDE 1 MG INJ IV (18:00)
[2018-12-11] MEDS: POTASSIUM CHLORIDE (SR) 20 MEQ TAB PO (18:09)
[2018-12-11] MEDS: MAGNESIUM SULFATE 2 GM/50 ML 50 ML IVPB (18:09)
[2018-12-11] MEDS: BUMETANIDE 2 MG in DEXTROSE 5% 17 ML IV (19:50)
[2018-12-11] MEDS: ATORVASTATIN 40 MG TAB PO (20:36)
[2018-12-11] MEDS: INSULIN GLARGINE [LANTus] (100 UNITS/ML) SYG SC (20:36)
[2018-12-12] MEDS: ALBUTEROL/IPRATROPIUM (NEB) 3 ML AMP HHN ×3 (02:00→14:00)
[2018-12-12] MEDS: ACETYLCYSTEINE 20% 4 ML VIAL NEB ×3 (02:00→14:00)
[2018-12-12] MEDS: METOCLOPRAMIDE 10 MG INJ IV (04:20)
[2018-12-12] MEDS: INSULIN ASPART [NOVOLOG] 3 ML PEN SC ×4 (07:55→12:58)
[2018-12-12] MEDS: APIXABAN 5 MG TABLET PO (08:03)
[2018-12-12] MEDS: METOPROLOL 50 MG TAB PO (08:03)
[2018-12-12] MEDS: BUMETANIDE 1 MG TAB PO (08:03)
[2018-12-12] MEDS: LINAGLIPTIN 5 MG TABLET PO (08:04)
[2018-12-12] MEDS: POLYETHYLENE GLYCOL 17 GM PACKET PO (08:05)
[2018-12-12 08:44] LABS: ADD MAN DIFF? NO
[2018-12-12 08:47] LABS: WHITE BLOOD COUNT 6.1 10^3/ul (4.8-10.8)
[2018-12-12 08:47] LABS: BASOPHILS % 0.3 % (0.0-2.0); EOSINOPHILS # 0.2 10^3/ul (0.0-0.5); EOSINOPHILS % 3.9 % (0.0-7.0); HEMOGLOBIN 9.8 g/dl (12.0-16.0); LYMPHOCYTES # 1.2 10^3/ul (0.8-2.9); LYMPHOCYTES % 19.4 % (15.0-51.0); MEAN CORPUSCULAR HGB CONC 31.6 g/dl (32.0-37.0); MEAN CORPUSCULAR VOLUME 91.7 fl (82.0-101.0); MEAN PLATELET VOLUME 10.1 fl (7.4-10.4); MONOCYTE # 0.6 10^3/ul (0.3-0.9); MONOCYTES % 10.3 % (0.0-11.0); NEUTROPHILS % 65.6 % (39.0-77.0); PLATELET COUNT 202 10^3/UL (140-415); RED BLOOD COUNT 3.38 10^6/ul (4.20-5.40); RED CELL DISTRIBUTION WIDTH 15.3 % (11.5-14.5)
[2018-12-12 09:11] LABS: MAGNESIUM 2.1 mg/dl (1.7-2.5)
[2018-12-12 09:11] LABS: PHOSPHORUS 3.3 mg/dl (2.5-4.9)
[2018-12-12 09:13] LABS: ANION GAP 7 (5-13); BLOOD UREA NITROGEN 12 mg/dl (7-20); CALCIUM 8.6 mg/dl (8.4-10.2); CARBON DIOXIDE 35 mmol/L (21-31); CHLORIDE 97 mmol/L (97-110); CREATININE 0.59 mg/dl (0.44-1.00); GLUCOSE 118 mg/dl (70-220); POTASSIUM 3.6 mmol/L (3.5-5.1); SODIUM 139 mmol/L (135-144)
[2018-12-12] MEDS: AMIODARONE 200 MG TAB PO (09:28)
[2018-12-12] MEDS: DIGOXIN 0.125 MG TAB PO (12:12)
== END 2018-12-12 16:00 | disposition home health service (06) | DRG 216 ==
LOC: TEL 02:30 → ICU 11-21 15:39
PROVIDERS: Family Medicine
PROC: 02RF08Z Replacement of Aortic Valve with Zooplastic Tissue, Open Approach (ICD-10-PCS; principal; 2018-11-19 16:33)
PROC: B211YZZ Fluoroscopy of Multiple Coronary Arteries using Other Contrast (ICD-10-PCS; 2018-11-19 16:33)
PROC: 021209W Bypass Coronary Artery, Three Arteries from Aorta with Autologous Venous Tissue, Open Approach (ICD-10-PCS; 2018-11-19 16:33)
PROC: 02100Z9 Bypass Coronary Artery, One Artery from Left Internal Mammary, Open Approach (ICD-10-PCS; 2018-11-19 16:33)
PROC: 06BQ4ZZ Excision of Left Saphenous Vein, Percutaneous Endoscopic Approach (ICD-10-PCS; 2018-11-19 16:33)
PROC: 5A1221Z Performance of Cardiac Output, Continuous (ICD-10-PCS; 2018-11-19 16:33)
PROC: 02HP32Z Insertion of Monitoring Device into Pulmonary Trunk, Percutaneous Approach (ICD-10-PCS; 2018-11-19 16:33)
PROC: 0W993ZX Drainage of Right Pleural Cavity, Percutaneous Approach, Diagnostic (ICD-10-PCS; 2018-11-19 16:33)
PROC: 0W993ZX Drainage of Right Pleural Cavity, Percutaneous Approach, Diagnostic (ICD-10-PCS; 2018-11-19 16:33)
PROC: 05HY33Z Insertion of Infusion Device into Upper Vein, Percutaneous Approach (ICD-10-PCS; 2018-11-19 16:33)
PROC: 30233N1 Transfusion of Nonautologous Red Blood Cells into Peripheral Vein, Percutaneous Approach (ICD-10-PCS; 2018-11-19 16:33)
PROC: 30233R1 Transfusion of Nonautologous Platelets into Peripheral Vein, Percutaneous Approach (ICD-10-PCS; 2018-11-19 16:33)
PROC: 30233K1 Transfusion of Nonautologous Frozen Plasma into Peripheral Vein, Percutaneous Approach (ICD-10-PCS; 2018-11-19 16:33)
DX: I35.0 Nonrheumatic aortic (valve) stenosis (principal); J96.02 Acute respiratory failure with hypercapnia; J96.01 Acute respiratory failure with hypoxia; I50.33 Acute on chronic diastolic (congestive) heart failure; J18.9 Pneumonia, unspecified organism; G93.40 Encephalopathy, unspecified; I25.110 Atherosclerotic heart disease of native coronary artery with unstable angina pectoris; N17.9 Acute kidney failure, unspecified; J90 Pleural effusion, not elsewhere classified; E11.8 Type 2 diabetes mellitus with unspecified complications; I48.0 Paroxysmal atrial fibrillation; I11.0 Hypertensive heart disease with heart failure; H40.9 Unspecified glaucoma; E78.5 Hyperlipidemia, unspecified; E11.51 Type 2 diabetes mellitus with diabetic peripheral angiopathy without gangrene; E66.01 Morbid (severe) obesity due to excess calories; D64.9 Anemia, unspecified; R31.0 Gross hematuria; Z79.84 Long term (current) use of oral hypoglycemic drugs; Z91.14 Patient's other noncompliance with medication regimen; Z68.36 Body mass index [BMI] 36.0-36.9, adult
CPT/HCPCS: 32555; 36415; 36430; 36569; 36592; 36600; 71045; 71250; 76604; 76775; 76937; 76942; 80048; 80053; 80061; 81001; 82306; 82550; 82553; 82803; 82945; 82962; 83036; 83605; 83615; 83735; 84100; 84132; 84157; 84436; 84443; 84479; 84484; 85014; 85018; 85025; 85378; 85576; 85610; 85730; 86644; 86850; 86900; 86901; 86920; 86945; 87070; 87081; 87086; 87102; 87116; 87205; 88104; 88304; 88305; 89051; 93005; 93306; 93454; 93880; 93970; 94002; 94003; 94640; 94660; 94664; 94667; 94668; 94669; 94770; 97110; 97116; 97161; 97530; 99217; G0378